=== PATIENT | male | born 1980 | race Caucasian/White ===

== ENCOUNTER 2016-07-14 10:20 | Inpatient (IN) | payer MEDICARE ==
[2016-07-14] MEDS ORDERED: Sodium Chloride 0.9% 1000 ML 1,000 ML IV STA ×2 (10:37→11:21)
[2016-07-14] MEDS ORDERED: Zofran 4 MG/2 ML VIAL IV ONE (10:42)
--- NOTE | 2016-07-14 10:42 | ERPHSYRPT ---
- History of Present Illness Time Seen by Provider: 07/14/16 10:39 Source: patient Exam Limitations: no limitations Patient Subjective Stated Complaint: PT REPORTS HIGH BLOOD SUGAR-STATES HE BEGAN VOMITING BHARGAVI 3 DAYS AGO-DENIES DIARRHEA-DENIES PAIN Triage Nursing Assessment: PT LETHARGIC BUT ALERT UPON ARRIVAL-UPPER EXTREMITIES DUSKY-CAP REFILL DELAYED-RESP NONLABORED Physician History: This 35-year-old white male with history of hyperglycemia, diabetes, failed pancreatic transplant. Brought by paramedics with complaint of vomiting increased blood sugar since today. Past medical history includes glaucoma, diabetes, congestive heart failure, GI bleed, depression, collapsed lung, GI bleed, failed pancreatic transplant, removal of 2 feet of his small bowel,. Past surgical history includes pancreatic surgery, hydrocele repair. Timing/Duration: today Severity: moderate Modifying Factors: Improves With: nothing Associated Symptoms: nausea, vomiting, malaise, weakness, No abdominal pain, No shortness of breath, No heartburn, No diaphoresis, No cough, No chills, No chest pain, No fever, No headaches, No loss of appetite, No rash, No syncope, No seizure Allergies/Adverse Reactions: lorazepam [From Ativan] Adverse Reaction (Verified 07/14/16 10:39) "makes him crazy" Home Medications: Esomeprazole Magnesium [Nexium] 40 mg PO DAILY 07/30/15 [History] Furosemide 40 mg [Lasix 40 MG] 40 mg PO DAILY 07/30/15 [History] Insulin Aspart [NovoLOG Insulin] 100 units SQ UD 07/30/15 [History] Insulin Glargine [Lantus Insulin] 15 units SQ DAILY 07/30/15 [History] Potassium Chloride 20 Meq [Klor-Con 20 MEQ] 20 meq PO DAILY 07/30/15 [History] Ropinirole HCl [Requip] 1 - 2 mg PO DAILY 07/30/15 [History] Aspirin 81 gm Chew [Baby Aspirin 81 mg Chew] 81 mg PO DAILY 07/14/16 [ History] Hydroxyzine HCl 25 mg [Atarax 25 mg] 25 mg PO UD 07/14/16 [History] Hx Tetanus, Diphtheria Vaccination/Date Given: No Hx Influenza Vaccination/Date Given: No Hx Pneumococcal Vaccination/Date Given: No Immunizations Up to Date: Yes - Review of Systems Constitutional: No Fever, No Chills Eyes: No Symptoms Ears, Nose, & Throat: No Symptoms Respiratory: No Cough, No Dyspnea Cardiac: No Chest Pain, No Edema, No Syncope Abdominal/Gastrointestinal: Nausea, Vomiting, No Abdominal Pain, No Diarrhea, No Constipation, No Hematemesis, No Hematochezia, No Melena, No Dysphagia Genitourinary Symptoms: No Dysuria Musculoskeletal: No Back Pain, No Neck Pain Skin: No Rash Neurological: No Dizziness, No Focal Weakness, No Sensory Changes Psychological: No Symptoms Endocrine: No Symptoms All Other Systems: Reviewed and Negative - Past Medical History Pertinent Past Medical History: Yes Neurological History: No Pertinent History ENT History: Glaucoma Cardiac History: Congestive Heart Failure Respiratory History: No Pertinent History Endocrine Medical History: Diabetes Type I, Other Musculoskeletal History: No Pertinent History GI Medical History: GI Bleed, Other History: No Pertinent History Psycho-Social History: Depression Male Reproductive Disorders: Other Other Medical History: hx of collasped lung,major GI bleed in 2003. removal of 4 feet of small intestin,failed pancreasatic transplant, Pt states - Past Surgical History Past Surgical History: Yes Neuro Surgical History: No Pertinent History Cardiac: No Pertinent History Respiratory: No Pertinent History Gastrointestinal: Pancreatic Surgery Genitourinary: No Pertinent History Musculoskeletal: No Pertinent History Male Surgical History: No Pertinent History, Other Other Surgical History: hydrocele repair - Social History Smoking Status: Never smoker Exposure to second hand smoke: No Drug Use: none Patient Lives Alone: No - Nursing Vital Signs Nursing Vital Signs: Initial Vital Signs Temperature 97.5 F Temperature Source Oral Pulse Rate 130 Respiratory Rate 20 Blood Pressure [Right Arm] 132/72 Pain Intensity 0 - Physical Exam General Appearance: other (well-developed white male pale and weak in appearance ) Eye Exam: PERRL/EOMI, eyes nml inspection Ears, Nose, Throat Exam: normal ENT inspection, TMs normal, pharynx normal, moist mucous membranes Neck Exam: normal inspection, non-tender, supple, full range of motion Respiratory Exam: normal breath sounds, lungs clear, No respiratory distress Cardiovascular Exam: tachycardia, other (heart tachycardic without murmur) Gastrointestinal/Abdomen Exam: soft, normal bowel sounds, No tenderness, No mass Back Exam: normal inspection, normal range of motion, No CVA tenderness, No vertebral tenderness Extremity Exam: normal inspection, normal range of motion, pelvis stable Neurologic Exam: alert, oriented x 3, cooperative, normal mood/affect, nml cerebellar function, nml station & gait, sensation nml, No motor deficits Skin Exam: normal color, warm, dry, No rash Lymphatic Exam: No adenopathy SpO2 Interpretation: normal (100%) SpO2: 100 Oxygen Delivery: Room Air - Course Nursing assessment & vital signs reviewed: Yes EKG Interpreted by Me: RATE (132 bpm), Sinus Tach, NORMAL AXIS, Other (EKG, sinus tachycardia 132 beats per minute normal axis no acute ST or T wave changes ) Ordered Tests: Active Orders 24 hr Category Date Time Status Accucheck STAT Care 07/14/16 10:37 Active EKG-ER Only STAT Care 07/14/16 10:37 Active IV Insertion STAT Care 07/14/16 10:37 Active Pulse Oximetry (ED) STAT Care 07/14/16 10:37 Active ABG [ARTERIAL BLOOD GASES] Urgent Lab 07/14/16 11:25 Completed AMYLASE Stat Lab 07/14/16 11:25 Completed CBC W DIFF Stat Lab 07/14/16 11:25 Completed CMP Stat Lab 07/14/16 11:25 Completed Ethyl Alcohol,Urine Stat Lab 07/14/16 10:37 Ordered Glucose,Critical Care Urgent Lab 07/14/16 11:25 Completed LIPASE Stat Lab 07/14/16 11:25 Completed Lactic Acid Urgent Lab 07/14/16 11:25 Completed Manual Differential NC Stat Lab 07/14/16 11:25 Completed UA Stat Lab 07/14/16 10:37 Ordered Urine Triage Profile Stat Lab 07/14/16 10:38 Ordered Medication Summary Generic Name Dose Route Start Last Admin Trade Name Freq PRN Reason Stop Dose Admin Insulin Human Regular 100 101 mls @ 5.05 mls/hr 07/14/16 12:30 units/ Sodium Chloride IV 08/13/16 12:29 .Q20H REGAN 5 UNITS/HR Discontinued Medications Generic Name Dose Route Start Last Admin Trade Name Freq PRN Reason Stop Dose Admin Sodium Chloride 1,000 mls @ 999 mls/hr 07/14/16 10:37 07/14/16 10:50 Sodium Chloride 0.9% 1000 Ml IV 07/14/16 11:37 999 mls/hr .Q1H1M STA Administration Sodium Chloride Confirm 07/14/16 10:51 Sodium Chloride 0.9% 1000 Ml Administered 07/14/16 10:52 Dose 1,000 mls @ ud .ROUTE .STK-MED ONE Sodium Chloride 1,000 mls @ 999 mls/hr 07/14/16 11:21 Sodium Chloride 0.9% 1000 Ml IV 07/14/16 12:21 .Q1H1M STA Ondansetron HCl 4 mg 07/14/16 10:42 07/14/16 10:50 Zofran 4 Mg/2 Ml Vial IV 07/14/16 10:43 4 mg STAT ONE Administration Ondansetron HCl Confirm 07/14/16 10:51 Zofran 4 Mg/2 Ml Vial Administered 07/14/16 10:52 Dose 4 mg .ROUTE .STK-MED ONE Lab/Rad Data: Laboratory Result Diagrams 07/14/16 11:25 07/14/16 11:25 Laboratory Results 07/14/16 07/14/16 07/14/16 Range/Units 11:25 11:25 11:25 WBC (4.0-10.5) K/mm3 RBC (4.1-5.6) M/mm3 Hgb (12.5-18.0) gm/dl Hct (42-50) % MCV (78-100) fl MCH (26-32) pg MCHC (32-36) g/dl RDW (11.5-14.0) % Plt Count (150-450) K/mm3 MPV (6-9.5) fl Segmented Neutrophils (36.-66.) % Band Neutrophils (0.0-2.0) % Lymphocytes (Manual) (24-44) % Monocytes (Manual) (0.0-12.0) % Basophils (Manual) (0.0-1.0) % Differential Comment Platelet Estimate (NORMAL) Puncture Site neck pCO2 17 L* (35-45) mmHg pO2 87 (75-100) mmHg Base Excess -22.6 L (-2.0-2.0) O2 Saturation 94.6 (94-100) g/dF ABG pH 7.09 L* (7.35-7.45) ABG HCO3 5.2 L* (22-28) ABG O2 Sat (Measured) 96.2 (95-100) % Power Test NOT APPLICABLE A-a Gradient 41 a/A Ratio 0.68 Hemoglobin 14.9 Carboxyhemoglobin 0.9 (0.0-6.9) % THgb Methemoglobin 0.8 L (1.4-1.5) % Potassium 5.6 H 4.8 (3.5-5.1) Glucose 662 H* 665 H* (70-110) Temperature 37.0 C POC O2 Flow Rate 21 % Sodium 125 L (136-145) mEq/L Chloride 89 L (98-107) mEq/L Carbon Dioxide < 5.0 L* (21-32) mEq/L Anion Gap Not Reportable BUN 20 (9-20) mg/dL Creatinine 1.42 H (0.55-1.30) mg/dl Estimated GFR > 60 ML/MIN Lactic Acid 1.9 (0.4-2.0) Calcium 9.5 (8.5-10.1) mg/dL Total Bilirubin 0.9 (0.2-1.0) mg/dL AST 72 H (15-37) U/L ALT 68 (12-78) U/L Alkaline Phosphatase 167 H (46-116) U/L Serum Total Protein 7.9 (6.4-8.2) gm/dL Albumin 3.7 (3.4-5.0) g/dL Amylase 34 (25-115) U/L Lipase 120 (73-393) U/L // Range/Units 11:25 WBC 13.5 H (4.0-10.5) K/mm3 RBC 5.17 (4.1-5.6) M/mm3 Hgb 14.2 (12.5-18.0) gm/dl Hct 43.3 (42-50) % MCV 83.8 (78-100) fl MCH 27.5 (26-32) pg MCHC 32.8 (32-36) g/dl RDW 14.5 H (11.5-14.0) % Plt Count 518 H (150-450) K/mm3 MPV 9.4 (6-9.5) fl Segmented Neutrophils 72 H (36.-66.) % Band Neutrophils 4 H (0.0-2.0) % Lymphocytes (Manual) 20 L (24-44) % Monocytes (Manual) 3 (0.0-12.0) % Basophils (Manual) 1 (0.0-1.0) % Differential Comment NORMAL Platelet Estimate INCREASED (NORMAL) Puncture Site pCO2 (35-45) mmHg pO2 (75-100) mmHg Base Excess (-2.0-2.0) O2 Saturation (94-100) g/dF ABG pH (7.35-7.45) ABG HCO3 (22-28) ABG O2 Sat (Measured) (95-100) % Power Test A-a Gradient a/A Ratio Hemoglobin Carboxyhemoglobin (0.0-6.9) % THgb Methemoglobin (1.4-1.5) % Potassium (3.5-5.1) Glucose (70-110) Temperature C POC O2 Flow Rate % Sodium (136-145) mEq/L Chloride (98-107) mEq/L Carbon Dioxide (21-32) mEq/L Anion Gap BUN (9-20) mg/dL Creatinine (0.55-1.30) mg/dl Estimated GFR ML/MIN Lactic Acid (0.4-2.0) Calcium (8.5-10.1) mg/dL Total Bilirubin (0.2-1.0) mg/dL AST (15-37) U/L ALT (12-78) U/L Alkaline Phosphatase (46-116) U/L Serum Total Protein (6.4-8.2) gm/dL Albumin (3.4-5.0) g/dL Amylase (25-115) U/L Lipase (73-393) U/L - Progress Progress: improved Progress Note: 07/14/16 11:21 patient refused interosseous lines nurses having difficulty obtaining IV peripheral line has sewing teacher placed right external jugular line. 07/14/16 12:24 Patient in diabetic ketoacidosis he is receiving IV normal saline initial 2 L to run in. Insulin drip has been ordered. Case is discussed with Dr. Christopher Mendez will place patient on ICU diabetic ketoacidosis protocol. - Departure Time of Disposition: 12:26 Departure Disposition: In-patient Admission Clinical Impression: Diabetic ketoacidosis Qualifiers: Diabetes mellitus type: type 1 Diabetes mellitus complication detail: without coma Qualified Code(s): E10.10 - Type 1 diabetes mellitus with ketoacidosis without coma Condition: Fair Critical Care Time: No
[2016-07-14] MEDS ORDERED: Sodium Chloride 0.9% 1000 ML 1,000 ML ONE ×2 (10:51→12:42)
[2016-07-14] MEDS ORDERED: Zofran 4 MG/2 ML VIAL ONE (10:51)
[2016-07-14 11:28] LABS: A-aADO2 41; ARTERIAL BLD GAS O2 SATURATION 96.2 % (95-100); ARTERIAL BLOOD GAS BASE EXCESS -22.6 (-2.0-2.0); ARTERIAL BLOOD GAS FIO2 21 %; ARTERIAL BLOOD GAS PO2 87 mmHg (75-100); ARTERIAL BLOOD GAS pH 7.09 (7.35-7.45); Lactic Acid 1.9 (0.4-2.0)
[2016-07-14 11:29] LABS: Glucose,Critical Care 662 (70-110); Mean Cell Volume 83.8 fl (78-100); Mean Corpuscular Hemoglobin 27.5 pg (26-32); Mean Platelet Volume 9.4 fl (6-9.5); Platelet Count 518 K/mm3 (150-450); Red Blood Count 5.17 M/mm3 (4.1-5.6); Red Cell Distribution Width 14.5 % (11.5-14.0); White Blood Count 13.5 K/mm3 (4.0-10.5)
[2016-07-14 11:52] LABS: LIPASE 120 U/L (73-393)
[2016-07-14 11:56] LABS: ALBUMIN 3.7 g/dL (3.4-5.0); ALKALINE PHOSPHATASE 167 U/L (46-116); BILIRUBIN,TOTAL 0.9 mg/dL (0.2-1.0); BLOOD UREA NITROGEN 20 mg/dL (9-20); CHLORIDE 89 mEq/L (98-107); Potassium 4.8 mEq/L (3.5-5.1); SGOT/AST 72 U/L (15-37); SGPT/ALT 68 U/L (12-78); SODIUM 125 mEq/L (136-145); Total Protein 7.9 gm/dL (6.4-8.2)
[2016-07-14 11:57] LABS: BAND 4 % (0.0-2.0); Basophil 1 % (0.0-1.0); Platelet Estimate INCREASED (NORMAL); Total Cells Counted 100
[2016-07-14 12:11] LABS: Glucose 665 MG/DL (70-110)
[2016-07-14 12:16] LABS: Carbon Dioxide < 5.0 mEq/L (21-32)
[2016-07-14] MEDS ORDERED: NOVOLIN R INSULIN (FOR DRIPS)** 100 UNITS in Sodium Chloride 0.9% 100 ML IVPB 100 ML IV SCH (12:30)
[2016-07-14 12:32] LABS: Collection Type VOID
[2016-07-14 12:33] LABS: COMPLETE URINE MICROSCOPIC? YES
[2016-07-14 12:54] LABS: Bacteria RARE /HPF (NEGATIVE)
[2016-07-14] MEDS ORDERED: Zofran 4 MG/2 ML VIAL IV PRN ×2 (13:27→15:35)
[2016-07-14] MEDS ORDERED: Sodium Chloride 0.9% 1000 ML 1,000 ML IV SCH (13:27)
[2016-07-14] MEDS ORDERED: NovoLOG Insulin SQ PRN (13:39)
[2016-07-14] MEDS ORDERED: Lantus Insulin SQ SCH (14:00)
[2016-07-14 14:10] LABS: INR 0.88 (0.8-3.0); PROTIME 9.9 SECONDS (8.83-12.87)
[2016-07-14 14:13] LABS: PTT 26.5 SECONDS (24.1-36.1)
[2016-07-14] MEDS ORDERED: HEPARIN-NS 1,000 UNITS/500 ML IV ONE (14:25)
[2016-07-14] MEDS: ECOTRIN 81 MG PO SCH (15:42)
[2016-07-14] MEDS: Protonix 40MG Tablet PO SCH (15:42)
--- NOTE | 2016-07-14 16:25 | XRAY ---
Indication: Elevated WBC. Comparison: February 06, 2014. Portable chest again demonstrates normal heart, lungs, and bony thorax with new right arm PICC line in good position.
--- NOTE | 2016-07-14 16:28 | XRAY ---
Indication: Long-term IV access and therapy for DKA. Poor venous access. Informed consent obtained. Patient was placed on the fluoroscopic table in a supine position. Initial sonographic imaging of the right upper extremity was performed for localization of patent veins. The right upper extremity was then prepped and draped in sterile fashion. Tourniquet applied. 1% lidocaine plain used for local anesthesia. Using ultrasound guidance and a micropuncture needle, a basilic vein above the elbow was successfully percutaneously cannulized. A floppy tip 0.018 guidewire inserted. Tourniquet released. Needle was exchanged for a 5 [place]une[place] dilator peel-away sheath catheter. Ultimately a 5 [place] double-lumen PICC line was inserted over a longer 0.018 guidewire with the tip positioned in the distal SVC using fluoroscopic guidance. Guidewire removed. Both ports flushed with heparinized saline. Catheter was secured. Postoperative instructions and orders given. Patient discharged in good condition. Impression: Technically successful right upper extremity PICC line placement using ultrasound and fluoroscopic guidance. No immediate complications. Approximately 1 cc blood loss. Approximately 0.4 minute of fluoroscopy used.
--- NOTE | 2016-07-14 16:28 | XRAY ---
Indication: Ultrasound guidance for PICC line placement. Initial sonographic imaging of the right upper extremity was performed for localization of patent veins. A patent basilic vein identified above the elbow. Ultrasound guidance was then used for PICC line insertion. Full PICC line insertion is reported separately.
--- NOTE | 2016-07-14 17:11 | PCM.HP ---
History of Present Illness - Chief Complaint Chief Complaint: DKA Date: 07/14/16 History of Present Illness: is a 35 year old male. who has a long complicated history and is noncompliant with his diabetes. He is following with Dr. Matt for this but has not been to an appointment for some time. He developed a rash a week or 2 ago and saw an FI[employer] H[employer] COACH and was given kenalog and celestone. He said his sugars at that time were running in the 120 to 140 range. He states he has been tired on the vistaril and sleeping a lot so he didn 't get up to take his insulin for the last few days. He then woke up to today with dry heaves and feeling very weak and came to the ED. He admits he "took a little meth but I wasn't binging on it or nothing a few days ago to try to wake up". He has had past history of amphetamine abuse. He denies iv drug use and states he smokes it. He denies diarrhea, chest pain or shortness of breath. he has heart palpitations and anxiety. - Review of Systems Constitutional: Fatigue, No Fever, No Chills Eyes: No Discharge, No Vision Changes, No Double Vision Ears, Nose, & Throat: No Nose Congestion, No Nose Discharge, No Sinus Drainage Respiratory: No Cough, No Orthopnea, No Short Of Breath Cardiac: Palpitations, No Chest Pain, No Edema Abdominal/Gastrointestinal: Abdominal Pain, Nausea, No Vomiting, No Diarrhea, No Constipation Genitourinary Symptoms: No Dysuria, No Frequency, No Hematuria Musculoskeletal: Arthralgias, No Deformity, No Joint Redness, No Joint Swelling Skin: Rash, Other (pruritic rash abdomen back and extremities it has improved since previous evaluation for this with no new lesions noted. ) Neurological: No Focal Weakness, No Headache, No Seizure Psychological: Drug Abuse, Anxiety, Depression Endocrine: Polyuria Hematologic/Lymphatic: Anemia Medications & Allergies Home Medications: Home Medication List Esomeprazole Magnesium [Nexium] 40 mg PO DAILY 07/30/15 [History Confirmed 07/14] Furosemide 40 mg [Lasix 40 MG] 40 mg PO DAILY 07/30/15 [History Confirmed 07/14/16] Insulin Aspart [NovoLOG Insulin] 100 units SQ UD 07/30/15 [History Confirmed 07/14/16] Insulin Glargine [Lantus Insulin] 15 units SQ DAILY 07/30/15 [History Confirmed 07/14/16] Potassium Chloride 20 Meq [Klor-Con 20 MEQ] 20 meq PO DAILY 07/30/15 [History Confirmed 07/14/16] Ropinirole HCl [Requip] 1 - 2 mg PO DAILY 07/30/15 [History Confirmed 07/14/16] Aspirin 81 gm Chew [Baby Aspirin 81 mg Chew] 81 mg PO DAILY 07/14/16 [ History Confirmed 07/14/16] Hydroxyzine HCl 25 mg [Atarax 25 mg] 25 mg PO UD 07/14/16 [History Confirmed 07/14/16] Allergies/Adverse Reactions: Allergies Allergy/AdvReac Type Severity Reaction Status Date / Time lorazepam [From Ativan] AdvReac Verified 07/14/16 10:39 - Past Medical History Past Medical History: Yes Neurological History: No Pertinent History ENT History: Glaucoma Cardiac History: Congestive Heart Failure Respiratory History: No Pertinent History Endocrine Medical History: Diabetes Type I, Other Musculoskelatal History: No Pertinent History GI Medical History: GI Bleed, Other History: No Pertinent History Pyscho-Social History: Depression Male Reproductive Disorders: Other Comment: hx of collasped lung,major GI bleed in 2003. removal of 4 feet of small intestin,failed pancreasatic transplant, Pt states - Past Surgical History Past Surgical History: Yes Neuro Surgical History: No Pertinent History Cardiac History: No Pertinent History Respiratory Surgery: No Pertinent History GI Surgical History: Pancreatic Surgery Genitourinary Surgical Hx: No Pertinent History Musculskeletal Surgical Hx: No Pertinent History Male Surgical History: No Pertinent History, Other Other Surgical History: hydrocele repair - Social History Smoking Status: Never smoker Exposure to second hand smoke: No Alcohol: None Drug Use: methamphetamines - Physical Exam Vital Signs: Vital Signs - 24 hr Temp Pulse Resp BP Pulse Ox 07/14/16 14:00 96.8 F 130 H 25 H 152/94 96 07/14/16 13:15 96.8 F 132 H 28 H 152/94 100 07/14/16 12:52 97.4 F 136 H 22 133/69 98 07/14/16 12:48 97.4 F 132 H 20 132/69 100 07/14/16 12:27 100 07/14/16 11:51 130 H 20 132/72 100 07/14/16 11:12 98 07/14/16 10:24 97.5 F 128 H 24 150/92 100 General Appearance: mild distress, thin Neurologic Exam: alert, oriented x 3, cooperative Eye Exam: No scleral icterus, No pale conjunctivae Ears, Nose, Throat Exam: dry mucous membranes Neck Exam: normal inspection, non-tender, supple Respiratory Exam: normal breath sounds, lungs clear Cardiovascular Exam: tachycardia, No edema Gastrointestinal/Abdomen Exam: soft, normal bowel sounds, No tenderness, No distention, No mass Extremity Exam: normal inspection, No calf tenderness, No pedal edema, No swelling Skin Exam: warm, dry, rash, other (he has erythematous patches most prounounced righ back onto right abdomen but also on left abdomen and bilateral forearms that seems improved from previous office exam) Results - Labs Lab/Micro Results: Accuchecks Date 07/14/16 Time 13:30 Accucheck Value: 538 Accuchecks Date 07/14/16 Time 13:30 Accucheck Value: 538 - Radiology Impressions Radiology Exams & Impressions: Radiology Procedures Category Date Time Status CHEST 1 VIEW (PORTABLE) Routine Exams 07/14/16 Completed GUIDE FOR VASCULAR ACCESS [US] Routine Exams 07/14/16 Completed PICC LINE PLACEMENT Routine Exams 07/14/16 13:42 Completed Assessment/Plan (1) Diabetic ketoacidosis Current Visit: Yes Status: Acute Qualifiers: Diabetes mellitus type: type 1 Diabetes mellitus complication detail: without coma Qualified Code(s): E10.10 - Type 1 diabetes mellitus with ketoacidosis without coma Assessment & Plan: secondary to noncompliance and drug abuse currently on q1h blood glucose q4h K and abg monitor gap received 2L NS bolus and running 250 mL/h now glucose improved to 300's continue protocol as ordered for insulin gtt/ fluids / and K see paper chart order until gap closed then transition to subcutaneous insulin continue ppi GI ppx check mag and phos lab pending at this time replace prn Code(s): E13.10 - OTH DIABETES MELLITUS WITH KETOACIDOSIS WITHOUT COMA (2) Non compliance w medication regimen Current Visit: Yes Status: Acute Code(s): Z91.14 - PATIENT'S OTHER NONCOMPLIANCE WITH MEDICATION REGIMEN (3) History of peptic ulcer disease Current Visit: Yes Status: Acute Code(s): Z87.11 - PERSONAL HISTORY OF PEPTIC ULCER DISEASE (4) Methamphetamine abuse Current Visit: Yes Status: Acute Code(s): F15.10 - OTHER STIMULANT ABUSE, UNCOMPLICATED
[2016-07-14 17:31] LABS: VBG BASE EXCESS -15.7 (-2.0-2.0); VBG CARBOXYHEMOGLOBIN 1.2 % T HGB (0.0-6.9); VBG HCO3- 9.4 meq/L (22-28); VBG HEMOGLOBIN 12.1; VBG O2 SATURATION 90.4 (95-100); VBG POTASSIUM 4.1 (3.5-5.1); VBG pH 7.26 (7.32-7.42)
[2016-07-14] MEDS ORDERED: D5W/0.45NS W/ 20mEq KCl 1000 ML 1,000 ML IV PRN (18:00)
[2016-07-14 18:05] LABS: ANION GAP 30.7 MEQ/L (5-15); BLOOD UREA NITROGEN 16 mg/dL (9-20); CHLORIDE 111 mEq/L (98-107); Glucose 143 MG/DL (70-110); MAGNESIUM 1.9 mg/dL (1.8-2.4); Potassium 4.2 mEq/L (3.5-5.1); SODIUM 147 mEq/L (136-145)
[2016-07-14 18:17] LABS: Carbon Dioxide 9.9 mEq/L (21-32)
[2016-07-14 20:33] LABS: ANION GAP 29.2 MEQ/L (5-15); BLOOD UREA NITROGEN 14 mg/dL (9-20); CHLORIDE 108 mEq/L (98-107); Glucose 264 MG/DL (70-110); Potassium 4.4 mEq/L (3.5-5.1); SODIUM 144 mEq/L (136-145)
[2016-07-14 20:39] LABS: Carbon Dioxide 9.3 mEq/L (21-32)
[2016-07-14 21:38] LABS: VBG BASE EXCESS -13.9 (-2.0-2.0); VBG CARBOXYHEMOGLOBIN 1.3 % T HGB (0.0-6.9); VBG HCO3- 11.7 meq/L (22-28); VBG HEMOGLOBIN 10.7; VBG O2 SATURATION 85.8 (95-100); VBG pH 7.26 (7.32-7.42)
[2016-07-14] MEDS ORDERED: Dextrose 5% -0.45 NaCl 1000 ML 1,000 ML IV ONE (21:49)
[2016-07-14] MEDS ORDERED: Dextrose 5%-1/2NS IV Soln. 500 ML 500 ML IV SCH (22:00)
[2016-07-14] MEDS ORDERED: NON-FORMULARY ITEM (Ropinirole Hcl [Requip] 1 MG) PO SCH (22:00)
[2016-07-14] MEDS: [UNRECOGNIZED DRUG - OTHER] IV SCH (22:07)
[2016-07-14] MEDS: DEXTROSE 5% IV SCH (22:07)
[2016-07-14] MEDS: Requip 0.5 MG PO SCH (23:20)
[2016-07-15 00:37] LABS: VBG BASE EXCESS -8.5 (-2.0-2.0); VBG CARBOXYHEMOGLOBIN 2.7 % T HGB (0.0-6.9); VBG HCO3- 16.2 meq/L (22-28); VBG HEMOGLOBIN 10.8; VBG O2 SATURATION 91.5 (95-100); VBG POTASSIUM 3.7 (3.5-5.1); VBG pH 7.34 (7.32-7.42)
[2016-07-15 00:50] LABS: ANION GAP 20.5 MEQ/L (5-15); BLOOD UREA NITROGEN 11 mg/dL (9-20); CHLORIDE 108 mEq/L (98-107); Carbon Dioxide 17.5 mEq/L (21-32); Glucose 262 MG/DL (70-110); Potassium 3.8 mEq/L (3.5-5.1); SODIUM 142 mEq/L (136-145)
[2016-07-15] MEDS ORDERED: TYLENOL 325 MG PO PRN (01:11)
[2016-07-15] MEDS ORDERED: Dextrose 5% -0.45 NaCl 1000 ML 1,000 ML IV ONE (03:39)
[2016-07-15] MEDS: DEXTROSE 5% IV SCH (04:29)
[2016-07-15] MEDS: [UNRECOGNIZED DRUG - OTHER] IV SCH (04:29)
[2016-07-15 05:24] LABS: VBG BASE EXCESS -4.9 (-2.0-2.0); VBG CARBOXYHEMOGLOBIN 1.1 % T HGB (0.0-6.9); VBG HCO3- 21.1 meq/L (22-28); VBG HEMOGLOBIN 10.9; VBG O2 SATURATION 83.9 (95-100); VBG POTASSIUM 3.3 (3.5-5.1); VBG pH 7.31 (7.32-7.42)
[2016-07-15 05:41] LABS: Mean Cell Volume 80.9 fl (78-100); Mean Corpuscular Hemoglobin 27.2 pg (26-32); Mean Platelet Volume 8.9 fl (6-9.5); Platelet Count 338 K/mm3 (150-450); Red Blood Count 3.82 M/mm3 (4.1-5.6); Red Cell Distribution Width 14.3 % (11.5-14.0); White Blood Count 9.7 K/mm3 (4.0-10.5)
[2016-07-15 06:26] LABS: ANION GAP 15.8 MEQ/L (5-15); BLOOD UREA NITROGEN 10 mg/dL (9-20); CHLORIDE 108 mEq/L (98-107); Carbon Dioxide 20.6 mEq/L (21-32); Glucose 274 MG/DL (70-110); Potassium 3.3 mEq/L (3.5-5.1); SODIUM 141 mEq/L (136-145)
[2016-07-15] MEDS ORDERED: NOVOLIN R INSULIN (FOR DRIPS)** 100 UNITS in Sodium Chloride 0.9% 100 ML IVPB 100 ML IV PRN ×2 (07:14→07:28)
[2016-07-15] MEDS ORDERED: K-LYTE 25 MEQ PO ONE (07:30)
--- NOTE | 2016-07-15 07:53 | PCM.NOTE ---
Date and Time: 07/15/16745 Subjective Assessment: he is more alert and talking easily now. He still has sore throat and feels aching all over but no specific complaints. He has urinated well this morning. He has no nausea or shortness of breath. Objective Exam General Appearance: no apparent distress, thin Neurologic Exam: alert, oriented x 3 Skin Exam: warm, dry, rash (erythematous patch on right low back / flank abdomen as well as some minimal red papules and patches on left abdomen with red papules on extensor forarms bilatera.) Eye Exam: pale conjunctivae, No scleral icterus Ears, Nose, Throat Exam: moist mucous membranes Neck Exam: non-tender, supple Respiratory Exam: normal breath sounds, lungs clear Cardiovascular Exam: tachycardia Gastrointestinal/Abdomen Exam: soft, normal bowel sounds, No tenderness, No distention Extremity Exam: normal inspection, No calf tenderness, No eden's sign, No pedal edema OBJECTIVE DATA Vital Signs: Vital Signs - 24 hr Temp Pulse Resp BP Pulse Ox 07/15/16 06:00 108 H 19 118/61 98 07/15/16 04:00 98.4 F 108 H 19 118/61 98 07/15/16 02:00 108 H 07/15/16 00:01 117 H 07/15/16 00:00 117 H 16 117/68 98 07/14/16 20:00 127 H 15 117/68 99 07/14/16 18:00 124 H 16 129/78 97 07/14/16 16:00 99.1 F 121 H 23 149/99 97 07/14/16 14:00 96.8 F 133 H 25 H 140/84 97 07/14/16 13:15 96.8 F 132 H 28 H 152/94 100 07/14/16 12:52 97.4 F 136 H 22 133/69 98 07/14/16 12:48 97.4 F 132 H 20 132/69 100 07/14/16 12:27 100 07/14/16 11:51 130 H 20 132/72 100 07/14/16 11:12 98 07/14/16 10:24 97.5 F 128 H 24 150/92 100 Pain Assessment - Last Documented Pain Intensity 5 Pain Scale Used 0-10 Pain Scale Intake and Output: Intake & Output 07/12/16 07/13/16 07/14/16 07/15/16 11:59 11:59 11:59 11:59 Intake Total 6038 Output Total 600 Balance 5438 Weight 46.9 kg Lab Results: Accuchecks Date 07/14/1607/14/1607/14/1607/14/1607/14/1607/14/1607/14/1607/14/1607/14/16 Time 21:30 Time 19:30 Time 16:00 Time 18:30 Time 17:30 Time 15:30 Time 14:30 Time 13:30 Accucheck Value: 180 Accucheck Value: 219 Accucheck Value: 274 Accucheck Value: 195 Accucheck Value: 223 Accucheck Value: 251 Accucheck Value: 246 Accucheck Value: 175 Accucheck Value: 175 Accucheck Value: 244 Accucheck Value: 220 Accucheck Value: 131 Accucheck Value: 150 Accucheck Value: 378 Accucheck Value: 414 Accucheck Value: 538 Lab Results-Last 24 Hours 07/14/16 07/14/16 07/14/16 Range/Units 17:12 17:25 20:10 WBC (4.0-10.5) K/mm3 RBC (4.1-5.6) M/mm3 Hgb (12.5-18.0) gm/dl Hct (42-50) % MCV (78-100) fl MCH (26-32) pg MCHC (32-36) g/dl RDW (11.5-14.0) % Plt Count (150-450) K/mm3 MPV (6-9.5) fl VBG pH 7.26 L (7.32-7.42) VBG pCO2 at Pat Temp 21 L* (42-55) mm/Hg VBG pO2 at Pat Temp 51 H (25-40) mm/Hg VBG HCO3 9.4 L* (22-28) meq/L VBG O2 Sat (Ramos) 90.4 L (95-100) VBG Base Excess -15.7 L (-2.0-2.0) VBG Hemoglobin 12.1 VBG Carboxyhemoglobin 1.2 (0.0-6.9) % T HGB POC Potassium 4.1 (3.5-5.1) Sodium 147 H 144 (136-145) mEq/L Potassium 4.2 4.4 (3.5-5.1) mEq/L Chloride 111 H 108 H (98-107) mEq/L Carbon Dioxide 9.9 L* 9.3 L* (21-32) mEq/L Anion Gap 30.7 H 29.2 H (5-15) MEQ/L BUN 16 14 (9-20) mg/dL Creatinine 1.18 1.17 (0.55-1.30) mg/dl Estimated GFR > 60 > 60 ML/MIN Glucose 143 H 264 H (70-110) MG/DL Calcium 7.9 L 7.7 L (8.5-10.1) mg/dL Phosphorus 2.0 L (2.6-4.7) mg/dL Magnesium 1.9 (1.8-2.4) mg/dL 07/14/16 07/15/16 07/15/16 Range/Units 21:34 00:30 00:32 WBC (4.0-10.5) K/mm3 RBC (4.1-5.6) M/mm3 Hgb (12.5-18.0) gm/dl Hct (42-50) % MCV (78-100) fl MCH (26-32) pg MCHC (32-36) g/dl RDW (11.5-14.0) % Plt Count (150-450) K/mm3 MPV (6-9.5) fl VBG pH 7.26 L 7.34 (7.32-7.42) VBG pCO2 at Pat Temp 26 L 30 L (42-55) mm/Hg VBG pO2 at Pat Temp 45 H 52 H (25-40) mm/Hg VBG HCO3 11.7 L* 16.2 L* (22-28) meq/L VBG O2 Sat (Ramos) 85.8 L 91.5 L (95-100) VBG Base Excess -13.9 L -8.5 L (-2.0-2.0) VBG Hemoglobin 10.7 10.8 VBG Carboxyhemoglobin 1.3 2.7 (0.0-6.9) % T HGB POC Potassium 6.0 H* 3.7 (3.5-5.1) Sodium 142 (136-145) mEq/L Potassium 3.8 (3.5-5.1) mEq/L Chloride 108 H (98-107) mEq/L Carbon Dioxide 17.5 L (21-32) mEq/L Anion Gap 20.5 H (5-15) MEQ/L BUN 11 (9-20) mg/dL Creatinine 1.23 (0.55-1.30) mg/dl Estimated GFR > 60 ML/MIN Glucose 262 H (70-110) MG/DL Calcium 7.7 L (8.5-10.1) mg/dL Phosphorus (2.6-4.7) mg/dL Magnesium (1.8-2.4) mg/dL 07/15/16 07/15/16 07/15/16 Range/Units 05:19 05:20 05:20 WBC 9.7 (4.0-10.5) K/mm3 RBC 3.82 L (4.1-5.6) M/mm3 Hgb 10.4 L (12.5-18.0) gm/dl Hct 30.9 L (42-50) % MCV 80.9 (78-100) fl MCH 27.2 (26-32) pg MCHC 33.7 (32-36) g/dl RDW 14.3 H (11.5-14.0) % Plt Count 338 (150-450) K/mm3 MPV 8.9 (6-9.5) fl VBG pH 7.31 L (7.32-7.42) VBG pCO2 at Pat Temp 42 (42-55) mm/Hg VBG pO2 at Pat Temp 47 H (25-40) mm/Hg VBG HCO3 21.1 L (22-28) meq/L VBG O2 Sat (Ramos) 83.9 L (95-100) VBG Base Excess -4.9 L (-2.0-2.0) VBG Hemoglobin 10.9 VBG Carboxyhemoglobin 1.1 (0.0-6.9) % T HGB POC Potassium 3.3 L (3.5-5.1) Sodium 141 (136-145) mEq/L Potassium 3.3 L (3.5-5.1) mEq/L Chloride 108 H (98-107) mEq/L Carbon Dioxide 20.6 L (21-32) mEq/L Anion Gap 15.8 H (5-15) MEQ/L BUN 10 (9-20) mg/dL Creatinine 1.12 (0.55-1.30) mg/dl Estimated GFR > 60 ML/MIN Glucose 274 H (70-110) MG/DL Calcium 7.8 L (8.5-10.1) mg/dL Phosphorus (2.6-4.7) mg/dL Magnesium (1.8-2.4) mg/dL Radiology Exams: Radiology Procedures Category Date Time Status CHEST 1 VIEW (PORTABLE) Routine Exams 07/14/16 Completed GUIDE FOR VASCULAR ACCESS [US] Routine Exams 07/14/16 Completed PICC LINE PLACEMENT Routine Exams 07/14/16 13:42 Completed Assessment/Plan (1) Diabetic ketoacidosis Current Visit: Yes Status: Acute Qualifiers: Diabetes mellitus type: type 1 Diabetes mellitus complication detail: without coma Qualified Code(s): E10.10 - Type 1 diabetes mellitus with ketoacidosis without coma Assessment & Plan: gap closing acidosis resolving sugar improving will eat breakfast start 20 Units lantus turn insulin gtt and d5 of 2 hours after then start 5 Units + SSI moderate coverage with meals. repeat bmp this afternoon for K and labs in am Code(s): E13.10 - OTH DIABETES MELLITUS WITH KETOACIDOSIS WITHOUT COMA (2) Non compliance w medication regimen Current Visit: Yes Status: Acute Code(s): Z91.14 - PATIENT'S OTHER NONCOMPLIANCE WITH MEDICATION REGIMEN (3) History of peptic ulcer disease Current Visit: Yes Status: Acute Code(s): Z87.11 - PERSONAL HISTORY OF PEPTIC ULCER DISEASE (4) Methamphetamine abuse Current Visit: Yes Status: Acute Assessment & Plan: he has chronic tachycardia unclear if current tachycardia is due to the amphetamines his chronic baseine in the 100 to 120 range or his dka. given his history of fluid overload his regular use of lasix and current good renal function will stop the fluids in 2 hours and encourage po intake and monitor response. Code(s): F15.10 - OTHER STIMULANT ABUSE, UNCOMPLICATED
[2016-07-15] MEDS: ECOTRIN 81 MG PO SCH (08:32)
[2016-07-15] MEDS: Protonix 40MG Tablet PO SCH (08:32)
[2016-07-15] MEDS: POTASSIUM CHLORIDE 20 mEq IN WATER 100ML 100 ML IV SCH ×2 (08:42→10:44)
[2016-07-15] MEDS ORDERED: Dextrose 5% -0.45 NaCl 1000 ML 1,000 ML IV SCH (08:45)
[2016-07-15] MEDS ORDERED: BABY ASPIRIN 81 MG CHEW PO SCH (10:00)
[2016-07-15] MEDS ORDERED: NON-FORMULARY ITEM (Esomeprazole Magnesium [Nexium] 40 MG) PO SCH (10:00)
[2016-07-15] MEDS: NovoLOG Insulin SQ SCH ×2 (11:18→17:04)
[2016-07-15 14:27] LABS: ANION GAP 17.7 MEQ/L (5-15); BLOOD UREA NITROGEN 9 mg/dL (9-20); CHLORIDE 107 mEq/L (98-107); Carbon Dioxide 21.2 mEq/L (21-32); Glucose 281 MG/DL (70-110); Potassium 3.5 mEq/L (3.5-5.1); SODIUM 142 mEq/L (136-145)
[2016-07-15] MEDS ORDERED: Ativan 2 MG/1 ML VIAL IV PRN (16:04)
[2016-07-15] MEDS: BENADRYL 25 MG CAPSULE PO PRN ×2 (17:06→23:39)
[2016-07-15] MEDS: Requip 0.5 MG PO SCH (23:06)
[2016-07-16 05:34] LABS: Mean Cell Volume 81.6 fl (78-100); Mean Platelet Volume 8.6 fl (6-9.5); Platelet Count 263 K/mm3 (150-450); Red Blood Count 3.91 M/mm3 (4.1-5.6); Red Cell Distribution Width 14.4 % (11.5-14.0); White Blood Count 6.9 K/mm3 (4.0-10.5)
[2016-07-16 05:42] LABS: Mean Corpuscular Hemoglobin 27.8 pg (26-32)
[2016-07-16 06:04] LABS: ALBUMIN 2.4 g/dL (3.4-5.0); ALKALINE PHOSPHATASE 129 U/L (46-116); ANION GAP 10.8 MEQ/L (5-15); BILIRUBIN,TOTAL 0.4 mg/dL (0.2-1.0); BLOOD UREA NITROGEN 8 mg/dL (9-20); CHLORIDE 107 mEq/L (98-107); Carbon Dioxide 28.2 mEq/L (21-32); Glucose 178 MG/DL (70-110); MAGNESIUM 1.7 mg/dL (1.8-2.4); Potassium 3.5 mEq/L (3.5-5.1); SGOT/AST 68 U/L (15-37); SGPT/ALT 44 U/L (12-78); SODIUM 143 mEq/L (136-145); Total Protein 5.6 gm/dL (6.4-8.2)
--- NOTE | 2016-07-16 06:54 | PCM.DCORD ---
- Discharge Discharge Date: 07/16/16 Disposition: Home, Self-Care Condition: Good Prescriptions: New Insulin Glargine [Lantus Insulin] 20 unit SQ DAILY #0 unit Insulin Aspart [NovoLOG Insulin] 5 unit SQ AC #0 unit Triamcinolone 0.1% Cream [Kenalog 0.1% Cream 15 gm] 1 applic TP TID PRN #60 g PRN Reason: Itching Continue Ropinirole HCl [Requip] 1 - 2 mg PO DAILY Potassium Chloride 20 Meq [Klor-Con 20 MEQ] 20 meq PO DAILY Furosemide 40 mg [Lasix 40 MG] 40 mg PO DAILY Esomeprazole Magnesium [Nexium] 40 mg PO DAILY Hydroxyzine HCl 25 mg [Atarax 25 mg] 25 mg PO UD Aspirin 81 gm Chew [Baby Aspirin 81 mg Chew] 81 mg PO DAILY Discontinued Insulin Glargine [Lantus Insulin] 15 units SQ DAILY Insulin Aspart [NovoLOG Insulin] 100 units SQ UD Follow up with: CANDICE BUCKLEY [Primary Care Provider] - 1 Week
--- NOTE | 2016-07-16 07:26 | PCM.DS ---
Discharge Summary Date of Admission: 07/14/16 13:10 Date of Discharge: 07/16/16 Admitting Physician: CANDICE BUCKLEY Primary Care Provider: CANDICE BUCKLEY Allergies Allergies lorazepam [From Ativan] Adverse Reaction (Verified 07/14/16 10:39) "makes him crazy" Hospital Summary - Hospital Course Hospital Course: Jorge has uncontrolled type 1 diabetes and has history of noncompliance with medical therapy as well as a history of amphetamine abuse. He developed contact dermatitis about 10 days prior to presentation. He was given steroids IM by the [employer] [employer] he states it didn't change his sugars and when he was asked said it was running in the low 100's however his A1c was 11.0 so this seems unlikely. He was taking atarax for the itching and sleeping a great deal and did not take his insulin for 3 days then started having dry heaves and very weak and came to the ED. Was found to have DKA. He was treated with fluid boluses and then started on insulin gtt that was titrated until the gap closed and this was transitioned to subcutaneous lantus and novolog ac. We did 20 units of lantus and 5 units of novolog prior to meals to try to simplify the regimen for him and this seems to have controlled sugar better. He was unable to explain how he was using the novolog when he presented but states he does take it and does have lantus and novolog as well as testing supplies at home. We discussed the harms of chronic uncontrolled blood sugar and the need for vigilant control and he expressed understanding. He states he smoked just a little meth to try to wake him up a few days before he came to the hospital but states he has not been using regularly. We discussed the severe harms of amphetamines especially given his co morbidities and he expressed understanding. - Vitals & Intake/Output Vital Signs: Vital Signs Temperature 98.3 F 07/16/16 04:00 Pulse Rate 93 H 07/16/16 04:00 Respiratory Rate 16 07/16/16 06:00 Blood Pressure 130/85 07/16/16 04:00 O2 Sat by Pulse Oximetry 96 07/16/16 04:00 Intake & Output: Intake & Output 07/13/16 07/14/16 07/15/16 07/16/16 11:59 11:59 11:59 11:59 Intake Total 6038 1430 Output Total 600 1900 Balance 5438 -470 Weight 46.9 kg - Lab Result Diagrams: 07/16/16 05:18 07/16/16 05:18 Lab Results-Last 24 Hrs: Accuchecks Date 07/15/16 Date 07/15/16 Date 07/15/16 Time 22:00 Time 16:30 Time 11:16 Accucheck Value: 144 Accucheck Value: 128 Accucheck Value: 219 Lab Results-Last 24 Hours 07/15/16 07/16/16 07/16/16 Range/Units 13:46 05:18 05:18 WBC 6.9 (4.0-10.5) K/mm3 RBC 3.91 L (4.1-5.6) M/mm3 Hgb 10.9 L (12.5-18.0) gm/dl Hct 31.9 L (42-50) % MCV 81.6 (78-100) fl MCH 27.8 (26-32) pg MCHC 34.2 (32-36) g/dl RDW 14.4 H (11.5-14.0) % Plt Count 263 (150-450) K/mm3 MPV 8.6 (6-9.5) fl Sodium 142 (136-145) mEq/L Potassium 3.5 (3.5-5.1) mEq/L Chloride 107 (98-107) mEq/L Carbon Dioxide 21.2 (21-32) mEq/L Anion Gap 17.7 H (5-15) MEQ/L BUN 9 (9-20) mg/dL Creatinine 1.01 (0.55-1.30) mg/dl Estimated GFR > 60 ML/MIN Glucose 281 H (70-110) MG/DL Hemoglobin A1c 12.0 H (4.5-6.2) Calcium 8.1 L (8.5-10.1) mg/dL Magnesium (1.8-2.4) mg/dL Total Bilirubin (0.2-1.0) mg/dL AST (15-37) U/L ALT (12-78) U/L Alkaline Phosphatase (46-116) U/L Serum Total Protein (6.4-8.2) gm/dL Albumin (3.4-5.0) g/dL 07/16/16 Range/Units 05:18 WBC (4.0-10.5) K/mm3 RBC (4.1-5.6) M/mm3 Hgb (12.5-18.0) gm/dl Hct (42-50) % MCV (78-100) fl MCH (26-32) pg MCHC (32-36) g/dl RDW (11.5-14.0) % Plt Count (150-450) K/mm3 MPV (6-9.5) fl Sodium 143 (136-145) mEq/L Potassium 3.5 (3.5-5.1) mEq/L Chloride 107 (98-107) mEq/L Carbon Dioxide 28.2 (21-32) mEq/L Anion Gap 10.8 (5-15) MEQ/L BUN 8 L (9-20) mg/dL Creatinine 0.69 (0.55-1.30) mg/dl Estimated GFR > 60 ML/MIN Glucose 178 H (70-110) MG/DL Hemoglobin A1c (4.5-6.2) Calcium 8.3 L (8.5-10.1) mg/dL Magnesium 1.7 L (1.8-2.4) mg/dL Total Bilirubin 0.4 (0.2-1.0) mg/dL AST 68 H (15-37) U/L ALT 44 (12-78) U/L Alkaline Phosphatase 129 H (46-116) U/L Serum Total Protein 5.6 L (6.4-8.2) gm/dL Albumin 2.4 L (3.4-5.0) g/dL Micro Results-Entire Visit: Accuchecks Date 07/15/16 Date 07/15/16 Date 07/15/16 Time 22:00 Time 16:30 Time 11:16 Accucheck Value: 144 Accucheck Value: 128 Accucheck Value: 219 - Radiology Exams Ordered Rad Exams-Entire Visit: Radiology Procedures Category Date Time Status PICC LINE PLACEMENT Routine Exams 07/14/16 13:42 Completed Discharge Exam General Appearance: no apparent distress Neurologic Exam: alert, oriented x 3, cooperative Skin Exam: warm, dry, rash (papular patches on abdomen/flank/back upper and lower distal extremities.), other Eye Exam: No scleral icterus, No pale conjunctivae Neck Exam: normal inspection, non-tender, supple Respiratory Exam: normal breath sounds, lungs clear Cardiovascular Exam: tachycardia, No murmur Gastrointestinal/Abdomen Exam: soft, normal bowel sounds, No tenderness Extremity Exam: No calf tenderness, No pedal edema Final Diagnosis/Problem List - Final Discharge Diagnosis/Problem (1) Diabetic ketoacidosis Current Visit: Yes Status: Resolved (2) Non compliance w medication regimen Current Visit: Yes Status: Acute (3) History of peptic ulcer disease Current Visit: Yes Status: Acute (4) Methamphetamine abuse Current Visit: Yes Status: Acute (5) Uncontrolled type 1 diabetes mellitus Current Visit: Yes Status: Acute - Discharge Disposition: Home, Self-Care Condition: Good Prescriptions: New Insulin Glargine [Lantus Insulin] 20 unit SQ DAILY #0 unit Insulin Aspart [NovoLOG Insulin] 5 unit SQ AC #0 unit Triamcinolone 0.1% Cream [Kenalog 0.1% Cream 15 gm] 1 applic TP TID PRN #60 g PRN Reason: Itching Continue Ropinirole HCl [Requip] 1 - 2 mg PO DAILY Potassium Chloride 20 Meq [Klor-Con 20 MEQ] 20 meq PO DAILY Furosemide 40 mg [Lasix 40 MG] 40 mg PO DAILY Esomeprazole Magnesium [Nexium] 40 mg PO DAILY Hydroxyzine HCl 25 mg [Atarax 25 mg] 25 mg PO UD Aspirin 81 gm Chew [Baby Aspirin 81 mg Chew] 81 mg PO DAILY Discontinued Insulin Glargine [Lantus Insulin] 15 units SQ DAILY Insulin Aspart [NovoLOG Insulin] 100 units SQ UD Follow up with: CANDICE BUCKLEY [Primary Care Provider] - 1 Week
[2016-07-16] MEDS: BENADRYL 25 MG CAPSULE PO PRN (07:35)
[2016-07-16] MEDS: NovoLOG Insulin SQ SCH (07:38)
[2016-07-16 08:28] VITALS: BP 127/86; PULSE 95; O2SAT 97
== END 2016-07-16 10:00 | disposition home or self-care (01) | DRG 639 ==
LOC: ED 10:20 → ICU 13:10
PROVIDERS: ADMIT Family Medicine; ATTEND Family Medicine
DX: E10.10 Type 1 diabetes mellitus with ketoacidosis without coma (principal); Z79.4 Long term (current) use of insulin; Z91.14 Patient's other noncompliance with medication regimen; Z87.11 Personal history of peptic ulcer disease; F15.10 Other stimulant abuse, uncomplicated; F41.8 Other specified anxiety disorders
CPT/HCPCS: 36000; 36415; 36569; 36600; 71010; 76937; 77001; 80048; 80053; 80307; 80320; 81000; 82150; 82375; 82803; 82805; 82947; 82962; 83036; 83605; 83690; 83735; 83986; 84100; 85025; 85027; 85610; 85730; 93005; 96360; 96361; 96374; 99285; C1769; J1642; J1815; J2405; J3480; A9270-GY

== ENCOUNTER 2023-05-17 05:00 | Observation (INO) | payer MEDICARE ==
--- NOTE | 2023-05-17 06:02 | ERPHSYRPT ---
- History of Present Illness Historian: patient, EMS Exam Limitations: clinical condition Patient Subjective Stated Complaint: pt states that 2 days ago his insulin pump ran out of insulin and his CGM's battery . has been checking BS approx every 2 hours and treating BS with SQ novolog. last dose was 10units sq novolog at approx 0100. pt is not on any long acting insulin. he reports that about the same time 2days ago he started experiencing nausea and vomiting and reports that he has vomited approx 5 times in last 12hrs and it is "bile looking". LBM was 05/16/23 and reports it was "normal" for him and that he generally has a BM daily. pt states that there has been no blood in vomit or stool. Triage Nursing Assessment: pt brought into room 5 via EMS stretcher and transfered onto ED cot with staff x3. pt is alert and oriented times three, able to speak in 4-5 word phrases, is able to move all extremities, and with resp even and unlabored. skin is pale, warm, dry, and intact with darker scaly skin to bilat lower legs that pt states is from recent cellulitic infection. reports that IM zofran administered in ambulance helped "a lot" but is still nauseated. denies abd pain, change in appetite, difficulty with urinary or bowel elimination, sob, difficulty breathing, lightheadedness, dizziness. states that he has heartburn that is normal for him and he feels has been exacerbated by vomiting. abdomen is soft, flat, nondistended, nontender to touch, and with positive bowel sounds in all quadrants. Timing/Duration: day(s) (2) Activities at Onset: none Quality: cramping Abdominal Pain Onset Location: generalized abdomen Pain Radiation: no radiation Severity of Pain-Max: mild (To moderate) Severity of Pain-Current: mild (To moderate) Associated Symptoms: loss of appetite, nausea, vomiting, weakness Previous symptoms: same symptoms as today, no recent treatment Hx Tetanus, Diphtheria Vaccination/Date Given: No (unknown) Hx Influenza Vaccination/Date Given: Yes Hx Pneumococcal Vaccination/Date Given: No Immunizations Up to Date: No <MARTI ASCENCIO - Last Filed: 05/17/23 06:49> <DELMER PITT - Last Filed: 05/17/23 09:17> - History of Present Illness Time Seen by Provider: 05/17/23 05:55 Physician History: This is a 42-year-old white male patient who is insulin-dependent diabetic and has been on an insulin pump. However, 2 days ago, his insulin pump ran out of insulin and his glucose monitoring device batteries "". Patient has been checking his blood sugar every 2 hours and giving himself short acting insulin subcutaneous injections. It has been in the last 2 days he is also noticed nausea. His symptoms of nausea have become more significant leading to 5 episodes of vomiting in the last 12 hours. Patient has a history of gastroparesis. Patient was brought to the emergency department by the paramedics. Patient has been treated for cellulitis by infectious disease specialist Dr. Cueva. Patient has a research consultant Dr. Jewell and telecommunicator Dr. Haider. His blood sugar/Accu-Chek on arrival to the emergency department is 270. Patient does have abdominal pain. Patient denies chest pain. He has mild shortness of breath. Patient arrives to the emergency department without an intravenous line in place. Paramedics attempted several attempts. They were unsuccessful. (MARTI ASCENCIO) Allergies/Adverse Reactions: lorazepam [From Ativan] Adverse Reaction (Verified 05/17/23 05:04) "makes him crazy" Home Medications: Albuterol Sulfate [Proair Respiclick] 90 mcg IH DAILY 04/08/23 [History] Dapagliflozin Propanediol [Farxiga] 5 mg PO DAILY 04/08/23 [History] Guaifenesin 600 mg ER [Mucinex 600MG ER Tabs] 600 mg PO BID 04/08/23 [History] Metoprolol Tartrate 50 mg [Lopressor 50 MG] 50 mg PO TID 04/08/23 [ History] Ondansetron [Ondansetron Odt ] 4 mg PO Q6H PRN 04/08/23 [History] Pantoprazole Sodium [Protonix] 40 mg PO DAILY 04/08/23 [History] Pregabalin [Lyrica] 50 mg PO BID 04/08/23 [History] Travel Risk - International Travel Have you traveled outside of the country in past 3 weeks: No - Coronavirus Screening Are you exhibiting any of the following symptoms?: No Close contact with a COVID-19 positive Pt in past 14-21 Days: No - Vaccine Status Have you recieved a Covid-19 vaccination: Yes Optical Lab Technician: Moderna - Vaccination Dates Date of 2cond Vaccination (if applicable): unknown <MARTI ASCENCIO - Last Filed: 05/17/23 06:49> - Review of Systems Constitutional: Weakness Eyes: No Symptoms Ears, Nose, & Throat: No Symptoms Respiratory: No Symptoms Abdominal/Gastrointestinal: Abdominal Pain, Nausea, Vomiting, Appetite Changes Genitourinary Symptoms: No Symptoms Musculoskeletal: Arthralgias, Myalgias Neurological: No Symptoms Psychological: No Symptoms Endocrine: No Symptoms Hematologic/Lymphatic: No Symptoms Immunological/Allergic: No Symptoms All Other Systems: Reviewed and Negative <MARTI ASCENCIO - Last Filed: 05/17/23 06:49> - Past Medical History Pertinent Past Medical History: Yes Neurological History: Stroke ENT History: Glaucoma Cardiac History: Congestive Heart Failure Respiratory History: No Pertinent History Endocrine Medical History: Diabetes Type I, Other Musculoskeletal History: No Pertinent History GI Medical History: GI Bleed, Other History: No Pertinent History Psycho-Social History: Depression Male Reproductive Disorders: Other Other Medical History: hx of collasped lung,major GI bleed in 2003. removal of 4 feet of small intestin,failed pancreasatic transplant, Pt states. CELLULITIS. gastroparesis - Past Surgical History Past Surgical History: Yes Neuro Surgical History: No Pertinent History Cardiac: Vascular Surgery Respiratory: No Pertinent History Gastrointestinal: Bowel Surgery, Pancreatic Surgery Genitourinary: No Pertinent History Musculoskeletal: No Pertinent History Male Surgical History: No Pertinent History, Other Other Surgical History: hydrocele repair. fem fem bypass - Social History Smoking Status: Never smoker Exposure to second hand smoke: Yes Drug Use: none, methamphetamines Patient Lives Alone: No <MARTI ASCENCIO - Last Filed: 05/17/23 06:49> - Physical Exam General Appearance: mild distress (To moderate), alert, anxiety, thin Eye Exam: PERRL/EOMI, eyes nml inspection Ears, Nose, Throat Exam: dry mucous membranes Neck Exam: normal inspection, non-tender, supple, full range of motion Respiratory Exam: normal breath sounds, lungs clear, airway intact, No chest tenderness, No respiratory distress Cardiovascular Exam: tachycardia Gastrointestinal/Abdomen Exam: soft, normal bowel sounds, tenderness, guarding, No rebound Rectal Exam: not done Back Exam: normal inspection, normal range of motion, No CVA tenderness, No vertebral tenderness Extremity Exam: normal range of motion, pelvis stable, other (Bilateral lower e xtremity venous stasis disease. Skin very dry from the level of the mid tibia bilaterally distally) Neurologic Exam: alert, oriented x 3, cooperative, audit intern II-XII nml as tested Skin Exam: warm, dry Lymphatic Exam: No adenopathy SpO2 Interpretation: normal SpO2: 98 O2 Delivery: Room Air <MARTI ASCENCIO - Last Filed: 05/17/23 06:49> - Nursing Vital Signs Nursing Vital Signs: Initial Vital Signs Temperature 98.8 F 05/17/23 05:08 Pulse Rate 121 H 05/17/23 05:08 Respiratory Rate 21 05/17/23 05:08 Blood Pressure 170/98 05/17/23 05:08 O2 Sat by Pulse Oximetry 98 05/17/23 05:08 Pain Scale Pain Intensity 0 - Course Nursing assessment & vital signs reviewed: Yes - CT Exams Abdomen/Pelvis CT Interpretation: Tele-radiologist Report (Entire large bowel loaded with fecal matter. New calcifications/calcified nodules are noted along the right common iliac artery. No other acute abnormality detected) <DELMER PITT - Last Filed: 05/17/23 09:17> Ordered Tests: Active Orders 24 hr Category Date Time Status Clean Catch Urine Specimen STAT Care 05/17/23 06:06 Active IV Insertion STAT Care 05/17/23 06:06 Active ABDOMEN AND PELVIS W/0 CONTRAS [CT] Stat Exams 05/17/23 06:07 Completed AMYLASE Stat Lab 05/17/23 06:00 Completed BLOOD CULTURE Stat Lab 05/17/23 06:07 Received CBC W DIFF Stat Lab 05/17/23 06:00 Completed CMP Stat Lab 05/17/23 06:00 Completed LIPASE Stat Lab 05/17/23 06:00 Completed Lactic Acid Stat Lab 05/17/23 06:15 Completed MONO SCREEN Stat Lab 05/17/23 06:00 Completed POCT GLUCOSE Stat Lab 05/17/23 05:10 Completed UA W/RFX UR CULTURE Stat Lab 05/17/23 08:55 Ordered Urine Triage Profile Stat Lab 05/17/23 08:55 Ordered Transfer Order Routine Transfer 05/17/23 Ordered Medication Summary Discontinued Medications Generic Name Dose Route Start Last Admin Trade Name Tiffanie PRN Reason Stop Dose Admin Sodium Chloride 1,000 mls @ 999 mls/hr 05/17/23 06:06 Sodium Chloride 0.9% 1000 Ml IV 05/17/23 07:06 .Q1H1M STA Sodium Chloride Confirm 05/17/23 06:30 Sodium Chloride 0.9% 1000 Ml Administered 05/17/23 06:31 Dose 1,000 mls @ ud .ROUTE .STK-MED ONE Ondansetron HCl 4 mg 05/17/23 06:06 05/17/23 06:32 Ondansetron Hcl 4 Mg/2 Ml Vial IV 05/17/23 06:07 4 mg STAT ONE Administration Ondansetron HCl Confirm 05/17/23 06:30 Ondansetron Hcl 4 Mg/2 Ml Vial Administered 05/17/23 06:31 Dose 4 mg .ROUTE .STK-MED ONE Pantoprazole Sodium 40 mg 05/17/23 06:06 Pantoprazole 40 Mg Vial IV 05/17/23 06:07 STAT ONE Pantoprazole Sodium Confirm 05/17/23 06:30 Pantoprazole 40 Mg Vial Administered 05/17/23 06:31 Dose 40 mg IV .STK-MED ONE Lab/Rad Data: Laboratory Result Diagrams 05/17/23 06:00 05/17/23 06:00 Laboratory Results 05/17/23 05/17/23 05/17/23 Range/Units 06:24 06:15 06:00 WBC (4.0-10.5) x10^3/uL RBC (4.1-5.6) x10^6/uL Hgb (12.5-18.0) g/dL Hct (42-50) % MCV (78-100) fL MCH (26-32) pg MCHC (32-36) g/dL RDW (11.5-14.0) % Plt Count (150-450) x10^3/uL MPV (7.5-11.0) fL Gran % (36.0-66.0) % Immature Gran % (Auto) (0.00-0.4) % Nucleat RBC Rel Count (0.00-0.1) % Eos # (Auto) (0-0.5) x10^3/uL Immature Gran # (Auto) (0.00-0.03) x10^3u/L Absolute Lymphs (auto) (1.0-4.6) x10^3/uL Absolute Monos (auto) (0.0-1.3) x10^3/uL Absolute Nucleated RBC (0.00-0.01) x10^3u/L Lymphocytes % (24.0-44.0) % Monocytes % (0.0-12.0) % Eosinophils % (0.00-5.0) % Basophils % (0.0-0.4) % Absolute Granulocytes (1.4-6.9) x10^3/uL Basophils # (0-0.4) x10^3/uL Sodium (137-145) mmol/L Potassium (3.5-5.1) mmol/L Chloride (98-107) mmol/L Carbon Dioxide (22-30) mmol/L Anion Gap (5-15) MEQ/L BUN (9-20) mg/dL Creatinine (0.66-1.25) mg/dL Estimated GFR ML/MIN Glucose (74-106) mg/dL POC Glucometer (74 to 106) mg/dL Lactic Acid 2.0 (0.4-2.0) Calcium (8.4-10.2) mg/dL Total Bilirubin (0.2-1.3) mg/dL AST (17-59) U/L ALT (0-50) U/L Alkaline Phosphatase (38-126) U/L Serum Total Protein (6.3-8.2) g/dL Albumin (3.5-5.0) g/dL Amylase (30-110) U/L Lipase (23-300) U/L Monoscreen NEGATIVE (NEGATIVE) Influenza Type A Ag NEGATIVE (NEGATIVE) Influenza Type B Ag NEGATIVE (NEGATIVE) RSV (PCR) POSITIVE (NEGATIVE) SARS-CoV-2 (PCR) NEGATIVE (NEGATIVE) 05/17/23 05/17/23 05/17/23 Range/Units 06:00 06:00 05:10 WBC 17.0 H (4.0-10.5) x10^3/uL RBC 5.28 (4.1-5.6) x10^6/uL Hgb 13.6 (12.5-18.0) g/dL Hct 42.6 (42-50) % MCV 80.7 (78-100) fL MCH 25.8 L (26-32) pg MCHC 31.9 L (32-36) g/dL RDW 13.7 (11.5-14.0) % Plt Count 753 H (150-450) x10^3/uL MPV 8.9 (7.5-11.0) fL Gran % 85.2 H (36.0-66.0) % Immature Gran % (Auto) 0.7 H (0.00-0.4) % Nucleat RBC Rel Count 0.0 (0.00-0.1) % Eos # (Auto) 0.01 (0-0.5) x10^3/uL Immature Gran # (Auto) 0.12 H (0.00-0.03) x10^3u/L Absolute Lymphs (auto) 1.22 (1.0-4.6) x10^3/uL Absolute Monos (auto) 1.11 (0.0-1.3) x10^3/uL Absolute Nucleated RBC 0.00 (0.00-0.01) x10^3u/L Lymphocytes % 7.2 L (24.0-44.0) % Monocytes % 6.5 (0.0-12.0) % Eosinophils % 0.1 (0.00-5.0) % Basophils % 0.3 (0.0-0.4) % Absolute Granulocytes 14.52 H (1.4-6.9) x10^3/uL Basophils # 0.05 (0-0.4) x10^3/uL Sodium 134 L (137-145) mmol/L Potassium 3.8 (3.5-5.1) mmol/L Chloride 95 L (98-107) mmol/L Carbon Dioxide 28 (22-30) mmol/L Anion Gap 14.3 (5-15) MEQ/L BUN 37 H (9-20) mg/dL Creatinine 1.73 H (0.66-1.25) mg/dL Estimated GFR 50.6 ML/MIN Glucose 257 H (74-106) mg/dL POC Glucometer 270 H (74 to 106) mg/dL Lactic Acid (0.4-2.0) Calcium 10.0 (8.4-10.2) mg/dL Total Bilirubin 0.70 (0.2-1.3) mg/dL AST 20 (17-59) U/L ALT 15 (0-50) U/L Alkaline Phosphatase 259 H (38-126) U/L Serum Total Protein 7.6 (6.3-8.2) g/dL Albumin 3.4 L (3.5-5.0) g/dL Amylase 76 (30-110) U/L Lipase 56 (23-300) U/L Monoscreen (NEGATIVE) Influenza Type A Ag (NEGATIVE) Influenza Type B Ag (NEGATIVE) RSV (PCR) (NEGATIVE) SARS-CoV-2 (PCR) (NEGATIVE) <MARTI ASCENCIO - Last Filed: 05/17/23 06:49> - Progress Progress: improved Discussed with DrRad: Other (Case discussed with Dr. Lindo at 9:08 AM. Patient accepted for admission at 9:08 AM) Counseled pt/family regarding: lab results, diagnosis, rad results <DELMER PITT - Last Filed: 05/17/23 09:17> - Progress Progress Note: 05/17/23 06:03 This patient's medical issue is 1 of moderate to high complexity. Level complexity and the workup performed is based on review of the patient's past medical history, review of the patient's medication list, review of patient drug allergy list, history present illness and physical findings on examination. Workup in this patient includes intravenous line that was placed under ultras ound guidance and took a bit of time because patient has poor peripheral access, CBC, CMP, urinalysis, urine drug screen, infusion of 1 L normal saline solution, infusion of Protonix 40 mg intravenously, infusion of 4 mg intravenous Zofran, amylase, lipase, CT scan of the abdomen pelvis without contrast, viral swabs and monotest. 05/17/23 06:28 Patient care will be transferred to Dr. Pitt at shift change. He will follow-up with test results and make final disposition. (MARTI ASCENCIO) 42-year-old male endorsed to Dr. Pitt at approximately [address] Pitt advised f ollow-up pending studies and disposition accordingly. Workup reveals a dehydration with acute renal injury. Patient is RSV positive. Leukocytosis and thrombocytosis observed on laboratory workup. However this may be due to hemoconcentration from dehydration and nausea and vomiting. Likely triggered by RSV. Patient is not in DKA. Although there is a hyperglycemia of 157. We are currently working on obtaining IV access. Nurses have tried. We are currently waiting for SENIOR NET C DEVELOPER to place IV. Plan of care discussed with patient. He agrees to admission to [facility] for further evaluation and treatment. Portions of this note were created with voice recognition technology. There may be grammatical, spelling, punctuation or sound alike errors 05/17/23 09:13 (DELMER PITT) - Departure Departure Disposition: Observation Critical Care Time: No <MARTI ASCENCIO - Last Filed: 05/17/23 06:49> <DELMER PITT - Last Filed: 05/17/23 09:17> - Departure Clinical Impression: Hyperglycemia, Vomiting, RSV exposure, Constipation, Leukocytosis, Thrombocytosis, Dehydration, Nausea and vomiting, suture material right iliac fossa, Acute renal injury Condition: Stable Referrals: MICHELLE WILSON [Primary Care Provider] - Follow up/PCP as directed
[2023-05-17] MEDS ORDERED: Zofran 4 MG/2 ML VIAL IV ONE (06:06)
[2023-05-17 06:14] LABS: Absolute Neutrophil Ct (ANC) 14.52 x10^3/uL (1.4-6.9); BASOPHIL % 0.3 % (0.0-0.4); Basophil (Absolute #) 0.05 x10^3/uL (0-0.4); Eosinophil % 0.1 % (0.00-5.0); Eosinophil (Absolute #) 0.01 x10^3/uL (0-0.5); Hematocrit 42.6 % (42-50); Hemoglobin 13.6 g/dL (12.5-18.0); IMMATURE GRAN # 0.12 x10^3u/L (0.00-0.03); IMMATURE GRAN % 0.7 % (0.00-0.4); Lymphocyte (Absolute #) 1.22 x10^3/uL (1.0-4.6); Lymphocytes % 7.2 % (24.0-44.0); Mean Cell Volume 80.7 fL (78-100); Mean Corpuscular Hemoglobin 25.8 pg (26-32); Mean Corpuscular Hgb Concent. 31.9 g/dL (32-36); Mean Platelet Volume 8.9 fL (7.5-11.0); Monocyte (Absolute #) 1.11 x10^3/uL (0.0-1.3); Monocytes % 6.5 % (0.0-12.0); Neutrophil % 85.2 % (36.0-66.0); Platelet Count 753 x10^3/uL (150-450); Red Blood Count 5.28 x10^6/uL (4.1-5.6); Red Cell Distribution Width 13.7 % (11.5-14.0)
[2023-05-17 06:30] LABS: ALBUMIN 3.4 g/dL (3.5-5.0); ANION GAP 14.3 MEQ/L (5-15); BILIRUBIN,TOTAL 0.7 mg/dL (0.2-1.3); Creatinine 1 1.73 mg/dL (0.66-1.25); EST GLOMERULAR FILTRATION RATE 50.6 ML/MIN; Potassium 3.8 mmol/L (3.5-5.1); Total Protein 7.6 g/dL (6.3-8.2)
[2023-05-17] MEDS ORDERED: Zofran 4 MG/2 ML VIAL ONE (06:30)
[2023-05-17] MEDS ORDERED: PROTONIX 40 MG IV IV ONE (06:30)
[2023-05-17] MEDS ORDERED: Sodium Chloride 0.9% 1000 ML 1,000 ML ONE (06:30)
[2023-05-17] MEDS: Sodium Chloride 0.9% 1000 ML 1,000 ML IV STA ×2 (06:31→09:58)
[2023-05-17] MEDS: PROTONIX 40 MG IV IV ONE ×2 (06:32→09:57)
--- NOTE | 2023-05-17 07:18 | XRAY ---
CLINICAL HISTORY: ABD pain; vomiting TECHNIQUE: Contiguous axial images were obtained from the level of the diaphragm to the pubic symphysis without intravenous or oral contrast. Coronal and sagittal reconstructions were likewise performed and indicated to increase the sensitivity for detecting clinically relevant pathology. CT scan was performed according to ALARA (as low as reasonable achievable). COMPARISON: None FINDINGS: The visualized lung bases are clear. Evaluation of the abdominal and pelvic visceral organs is limited without intravenous contrast. The unenhanced liver, spleen, pancreas, and adrenal glands are grossly unremarkable. The gallbladder is present. The kidneys are normal in size and attenuation without obvious calcification. There is no hydronephrosis or perinephric stranding. The ureters are normal in caliber. No adenopathy or fluid collections are seen. No evidence of focal or diffuse bowel wall thickening or evidence of bowel obstruction is seen. The aorta is normal in caliber. The urinary bladder is normal in contour. Pelvic viscera are grossly unremarkable. No aggressive appearing osseous lesions are identified. Few calcifications/ calcified nodes are noted along the right common iliac artery. Linear radio dense suture material noted in right iliac fossa adjacent to small bowel loops-kindly correlate with previous clinical profile. Entire large bowel loaded with fecal matter. IMPRESSION: 1. Few calcifications/ calcified nodes are noted along the right common iliac artery. 2. No other acute abnormality detected. Electronically Signed by: Dr. Madan Mensah MD. (05/17/2023 07:14:20 EST)
[2023-05-17 07:20] LABS: INFLUENZA A NEGATIVE (NEGATIVE); INFLUENZA B NEGATIVE (NEGATIVE); SARS-CoV-2 Xpert Express NEGATIVE (NEGATIVE)
[2023-05-17 07:41] LABS: RESPIRATORY SYNCTIAL VIRUS POSITIVE (NEGATIVE)
[2023-05-17 09:57] LABS: Amphetamine,Urine NEGATIVE (NEGATIVE); Barbiturate,Urine NEGATIVE (NEGATIVE); Benzodiazepine,Urine NEGATIVE (NEGATIVE); Cocaine,Urine NEGATIVE (NEGATIVE); Methadone,Urine NEGATIVE (NEGATIVE); Opiate,Urine NEGATIVE (NEGATIVE); PCP,Urine NEGATIVE (NEGATIVE); THC,Urine NEGATIVE (NEGATIVE)
[2023-05-17 09:58] LABS: Appearance Clear (Clear); Bacteria None Seen /HPF (None Seen); Bilirubin Negative (Negative); Blood Moderate (Negative); Epithelial Cells Rare /HPF (None Seen); Glucose, Urine >=1000 mg/dL (Negative); Ketones 40 (Negative); Leukocyte Esterase Negative (Negative); Nitrite Negative (Negative); Ph 5.5 (4.6-8.0); Protein,Urine Dip 300 (Negative); Specific Gravity >=1.030 (1.005-1.030); Urobilinogen 0.2 mg/dL (0.2); WBC 0-2 /HPF (0-5)
[2023-05-17] MEDS ORDERED: Xylocaine-Mpf 2% 5 Ml Vial ONE (10:00)
[2023-05-17 10:15] LABS: ADD URINE CULTURE? YES (NO); Hyaline Casts 20-50 /LPF (0-2)
[2023-05-17] MEDS ORDERED: ZOFRAN ODT 4 MG PO ONE (10:22)
--- NOTE | 2023-05-17 10:33 | PCM.HP ---
History of Present Illness - Chief Complaint Chief Complaint: Nausea and vomiting, dehydration, acute renal injury Date: 05/17/23 History of Present Illness: is a 42 year old male with a pmhx of CHF, stroke, T1D ( on insulin pump), GI bleed who presented to ED 05/17/23 with complaints of a two day history of nausea and vomiting. He reports that he has been unable to tolerate a diet. Patient states he normally uses his insulin pump for his diabetes but his pump ran out of insulin and CGM batteries ran out so he has been using subQ Novolog, last dose was around 1 a.m. He also endorses a dry cough. In ED patient tachycardic, tachypneic, and hypertensive. CT of the abd/pelvis demonstrating fecal stasis, a few calcifications/ calcified nodes are noted along the right common iliacartery, otherwise unremarkable. Lab findings remarkable for leukocytosis with wbc at 17.0, mild hyponatremia at 134, CALLIE with BUN 37, creat 1.73, hyperglycemia at 270, RSV positive. UDS negative. - Review of Systems Constitutional: Weakness, Weight Loss, Other (sweats) Eyes: No Symptoms Ears, Nose, & Throat: No Symptoms Respiratory: Cough (dry) Cardiac: No Symptoms Abdominal/Gastrointestinal: Nausea, Vomiting Genitourinary Symptoms: No Symptoms Musculoskeletal: No Symptoms Skin: No Symptoms Neurological: Headache Psychological: No Symptoms Endocrine: No Symptoms Hematologic/Lymphatic: No Symptoms Immunological/Allergic: No Symptoms Medications & Allergies Home Medications: Home Medication List Albuterol Sulfate [Proair Respiclick] 90 mcg IH DAILY 04/08/23 [History Confirmed 05/17/23] Dapagliflozin Propanediol [Farxiga] 5 mg PO DAILY 04/08/23 [History Confirmed 05/17/23] Guaifenesin 600 mg ER [Mucinex 600MG ER Tabs] 600 mg PO BID 04/08/23 [History Confirmed 05/17/23] Metoprolol Tartrate 50 mg [Lopressor 50 MG] 50 mg PO TID 04/08/23 [History Confirmed 05/17/23] Ondansetron [Ondansetron Odt ] 4 mg PO Q6H PRN 04/08/23 [History Confirmed 05/17/23] Pantoprazole Sodium [Protonix] 40 mg PO DAILY 04/08/23 [History Confirmed 05/17/23] Pregabalin [Lyrica] 50 mg PO BID 04/08/23 [History Confirmed 05/17/23] Allergies/Adverse Reactions: Allergies Allergy/AdvReac Type Severity Reaction Status Date / Time lorazepam [From Ativan] AdvReac Verified 05/17/23 05:04 - Past Medical History Past Medical History: Yes Neurological History: Stroke ENT History: Glaucoma Cardiac History: Congestive Heart Failure Respiratory History: No Pertinent History Endocrine Medical History: Diabetes Type I, Other Musculoskelatal History: No Pertinent History GI Medical History: GI Bleed, Other History: No Pertinent History Pyscho-Social History: Depression Male Reproductive Disorders: Other Comment: hx of collasped lung,major GI bleed in 2003. removal of 4 feet of small intestin,failed pancreasatic transplant, Pt states. CELLULITIS. gastroparesis - Past Surgical History Past Surgical History: Yes Neuro Surgical History: No Pertinent History Cardiac History: Vascular Surgery Respiratory Surgery: No Pertinent History GI Surgical History: Bowel Surgery, Pancreatic Surgery Genitourinary Surgical Hx: No Pertinent History Musculskeletal Surgical Hx: No Pertinent History Male Surgical History: No Pertinent History, Other Other Surgical History: hydrocele repair. fem fem bypass - Social History Smoking Status: Never smoker Exposure to second hand smoke: Yes Alcohol: None Drug Use: none, methamphetamines - Physical Exam Vital Signs: Vital Signs - 24 hr Temp Pulse Resp BP BP Pulse Ox 05/17/23 09:43 97.2 F 121 H 16 179/75 100 05/17/23 09:04 122 H 14 96 05/17/23 07:00 117 H 18 153/81 100 05/17/23 06:50 98 05/17/23 06:45 116 H 14 163/86 100 05/17/23 06:30 117 H 15 180/97 97 05/17/23 06:00 119 H 14 175/86 99 05/17/23 05:30 115 H 12 185/103 99 05/17/23 05:08 98.8 F 123 H 26 H 170/98 97 General Appearance: no apparent distress Neurologic Exam: alert, oriented x 3, cooperative Eye Exam: PERRL/EOMI Ears, Nose, Throat Exam: normal ENT inspection, dry mucous membranes Neck Exam: normal inspection Respiratory Exam: normal breath sounds Cardiovascular Exam: tachycardia Gastrointestinal/Abdomen Exam: soft, normal bowel sounds Rectal Exam: deferred Back Exam: normal inspection Extremity Exam: normal inspection Skin Exam: normal color Results - Labs Lab/Micro Results: Lab Results-Last 24 Hours 05/17/23 05/17/23 05/17/23 Range/Units 05:10 06:00 06:00 WBC 17.0 H (4.0-10.5) x10^3/uL RBC 5.28 (4.1-5.6) x10^6/uL Hgb 13.6 (12.5-18.0) g/dL Hct 42.6 (42-50) % MCV 80.7 (78-100) fL MCH 25.8 L (26-32) pg MCHC 31.9 L (32-36) g/dL RDW 13.7 (11.5-14.0) % Plt Count 753 H (150-450) x10^3/uL MPV 8.9 (7.5-11.0) fL Gran % 85.2 H (36.0-66.0) % Immature Gran % (Auto) 0.7 H (0.00-0.4) % Nucleat RBC Rel Count 0.0 (0.00-0.1) % Eos # (Auto) 0.01 (0-0.5) x10^3/uL Immature Gran # (Auto) 0.12 H (0.00-0.03) x10^3u/L Absolute Lymphs (auto) 1.22 (1.0-4.6) x10^3/uL Absolute Monos (auto) 1.11 (0.0-1.3) x10^3/uL Absolute Nucleated RBC 0.00 (0.00-0.01) x10^3u/L Lymphocytes % 7.2 L (24.0-44.0) % Monocytes % 6.5 (0.0-12.0) % Eosinophils % 0.1 (0.00-5.0) % Basophils % 0.3 (0.0-0.4) % Absolute Granulocytes 14.52 H (1.4-6.9) x10^3/uL Basophils # 0.05 (0-0.4) x10^3/uL Sodium 134 L (137-145) mmol/L Potassium 3.8 (3.5-5.1) mmol/L Chloride 95 L (98-107) mmol/L Carbon Dioxide 28 (22-30) mmol/L Anion Gap 14.3 (5-15) MEQ/L BUN 37 H (9-20) mg/dL Creatinine 1.73 H (0.66-1.25) mg/dL Estimated GFR 50.6 ML/MIN Glucose 257 H (74-106) mg/dL POC Glucometer 270 H (74 to 106) mg/dL Lactic Acid (0.4-2.0) Calcium 10.0 (8.4-10.2) mg/dL Total Bilirubin 0.70 (0.2-1.3) mg/dL AST 20 (17-59) U/L ALT 15 (0-50) U/L Alkaline Phosphatase 259 H (38-126) U/L Serum Total Protein 7.6 (6.3-8.2) g/dL Albumin 3.4 L (3.5-5.0) g/dL Amylase 76 (30-110) U/L Lipase 56 (23-300) U/L Urine Color (Yellow) Urine Appearance (Clear) Urine pH (4.6-8.0) Ur Specific [place] (1.005-1.030) Urine Protein (Negative) Urine Glucose (UA) (Negative) mg/dL Urine Ketones (Negative) Urine Blood (Negative) Urine Nitrite (Negative) Urine Bilirubin (Negative) Urine Urobilinogen (0.2) mg/dL Ur Leukocyte Esterase (Negative) U Hyaline Cast (Auto) (0-2) /LPF Urine Microscopic RBC (0-5) /HPF Urine Microscopic WBC (0-5) /HPF Ur Epithelial Cells (None Seen) /HPF Urine Bacteria (None Seen) /HPF Urine Culture Reflexed (NO) Urine Opiates Level (NEGATIVE) Ur Methadone (NEGATIVE) Urine Barbiturates (NEGATIVE) Ur Phencyclidine (PCP) (NEGATIVE) Urine Amphetamine (NEGATIVE) U Benzodiazepine Level (NEGATIVE) Urine Cocaine (NEGATIVE) Urine Marijuana (THC) (NEGATIVE) Monoscreen (NEGATIVE) Influenza Type A Ag (NEGATIVE) Influenza Type B Ag (NEGATIVE) RSV (PCR) (NEGATIVE) SARS-CoV-2 (PCR) (NEGATIVE) 05/17/23 05/17/23 05/17/23 Range/Units 06:00 06:15 06:24 WBC (4.0-10.5) x10^3/uL RBC (4.1-5.6) x10^6/uL Hgb (12.5-18.0) g/dL Hct (42-50) % MCV (78-100) fL MCH (26-32) pg MCHC (32-36) g/dL RDW (11.5-14.0) % Plt Count (150-450) x10^3/uL MPV (7.5-11.0) fL Gran % (36.0-66.0) % Immature Gran % (Auto) (0.00-0.4) % Nucleat RBC Rel Count (0.00-0.1) % Eos # (Auto) (0-0.5) x10^3/uL Immature Gran # (Auto) (0.00-0.03) x10^3u/L Absolute Lymphs (auto) (1.0-4.6) x10^3/uL Absolute Monos (auto) (0.0-1.3) x10^3/uL Absolute Nucleated RBC (0.00-0.01) x10^3u/L Lymphocytes % (24.0-44.0) % Monocytes % (0.0-12.0) % Eosinophils % (0.00-5.0) % Basophils % (0.0-0.4) % Absolute Granulocytes (1.4-6.9) x10^3/uL Basophils # (0-0.4) x10^3/uL Sodium (137-145) mmol/L Potassium (3.5-5.1) mmol/L Chloride (98-107) mmol/L Carbon Dioxide (22-30) mmol/L Anion Gap (5-15) MEQ/L BUN (9-20) mg/dL Creatinine (0.66-1.25) mg/dL Estimated GFR ML/MIN Glucose (74-106) mg/dL POC Glucometer (74 to 106) mg/dL Lactic Acid 2.0 (0.4-2.0) Calcium (8.4-10.2) mg/dL Total Bilirubin (0.2-1.3) mg/dL AST (17-59) U/L ALT (0-50) U/L Alkaline Phosphatase (38-126) U/L Serum Total Protein (6.3-8.2) g/dL Albumin (3.5-5.0) g/dL Amylase (30-110) U/L Lipase (23-300) U/L Urine Color (Yellow) Urine Appearance (Clear) Urine pH (4.6-8.0) Ur Specific [place] (1.005-1.030) Urine Protein (Negative) Urine Glucose (UA) (Negative) mg/dL Urine Ketones (Negative) Urine Blood (Negative) Urine Nitrite (Negative) Urine Bilirubin (Negative) Urine Urobilinogen (0.2) mg/dL Ur Leukocyte Esterase (Negative) U Hyaline Cast (Auto) (0-2) /LPF Urine Microscopic RBC (0-5) /HPF Urine Microscopic WBC (0-5) /HPF Ur Epithelial Cells (None Seen) /HPF Urine Bacteria (None Seen) /HPF Urine Culture Reflexed (NO) Urine Opiates Level (NEGATIVE) Ur Methadone (NEGATIVE) Urine Barbiturates (NEGATIVE) Ur Phencyclidine (PCP) (NEGATIVE) Urine Amphetamine (NEGATIVE) U Benzodiazepine Level (NEGATIVE) Urine Cocaine (NEGATIVE) Urine Marijuana (THC) (NEGATIVE) Monoscreen NEGATIVE (NEGATIVE) Influenza Type A Ag NEGATIVE (NEGATIVE) Influenza Type B Ag NEGATIVE (NEGATIVE) RSV (PCR) POSITIVE (NEGATIVE) SARS-CoV-2 (PCR) NEGATIVE (NEGATIVE) 05/17/23 05/17/23 Range/Units 08:55 08:55 WBC (4.0-10.5) x10^3/uL RBC (4.1-5.6) x10^6/uL Hgb (12.5-18.0) g/dL Hct (42-50) % MCV (78-100) fL MCH (26-32) pg MCHC (32-36) g/dL RDW (11.5-14.0) % Plt Count (150-450) x10^3/uL MPV (7.5-11.0) fL Gran % (36.0-66.0) % Immature Gran % (Auto) (0.00-0.4) % Nucleat RBC Rel Count (0.00-0.1) % Eos # (Auto) (0-0.5) x10^3/uL Immature Gran # (Auto) (0.00-0.03) x10^3u/L Absolute Lymphs (auto) (1.0-4.6) x10^3/uL Absolute Monos (auto) (0.0-1.3) x10^3/uL Absolute Nucleated RBC (0.00-0.01) x10^3u/L Lymphocytes % (24.0-44.0) % Monocytes % (0.0-12.0) % Eosinophils % (0.00-5.0) % Basophils % (0.0-0.4) % Absolute Granulocytes (1.4-6.9) x10^3/uL Basophils # (0-0.4) x10^3/uL Sodium (137-145) mmol/L Potassium (3.5-5.1) mmol/L Chloride (98-107) mmol/L Carbon Dioxide (22-30) mmol/L Anion Gap (5-15) MEQ/L BUN (9-20) mg/dL Creatinine (0.66-1.25) mg/dL Estimated GFR ML/MIN Glucose (74-106) mg/dL POC Glucometer (74 to 106) mg/dL Lactic Acid (0.4-2.0) Calcium (8.4-10.2) mg/dL Total Bilirubin (0.2-1.3) mg/dL AST (17-59) U/L ALT (0-50) U/L Alkaline Phosphatase (38-126) U/L Serum Total Protein (6.3-8.2) g/dL Albumin (3.5-5.0) g/dL Amylase (30-110) U/L Lipase (23-300) U/L Urine Color Yellow (Yellow) Urine Appearance Clear (Clear) Urine pH 5.5 (4.6-8.0) Ur Specific [place] >=1.030 A (1.005-1.030) Urine Protein 300 A (Negative) Urine Glucose (UA) >=1000 A (Negative) mg/dL Urine Ketones 40 A (Negative) Urine Blood Moderate A (Negative) Urine Nitrite Negative (Negative) Urine Bilirubin Negative (Negative) Urine Urobilinogen 0.2 (0.2) mg/dL Ur Leukocyte Esterase Negative (Negative) U Hyaline Cast (Auto) 20-50 (0-2) /LPF Urine Microscopic RBC 6-10 A (0-5) /HPF Urine Microscopic WBC 0-2 (0-5) /HPF Ur Epithelial Cells Rare (None Seen) /HPF Urine Bacteria None Seen (None Seen) /HPF Urine Culture Reflexed YES (NO) Urine Opiates Level NEGATIVE (NEGATIVE) Ur Methadone NEGATIVE (NEGATIVE) Urine Barbiturates NEGATIVE (NEGATIVE) Ur Phencyclidine (PCP) NEGATIVE (NEGATIVE) Urine Amphetamine NEGATIVE (NEGATIVE) U Benzodiazepine Level NEGATIVE (NEGATIVE) Urine Cocaine NEGATIVE (NEGATIVE) Urine Marijuana (THC) NEGATIVE (NEGATIVE) Monoscreen (NEGATIVE) Influenza Type A Ag (NEGATIVE) Influenza Type B Ag (NEGATIVE) RSV (PCR) (NEGATIVE) SARS-CoV-2 (PCR) (NEGATIVE) - Radiology Impressions Radiology Exams & Impressions: Radiology Procedures Category Date Time Status ABDOMEN AND PELVIS W/0 CONTRAS [CT] Stat Exams 05/17/23 06:07 Completed Assessment/Plan (1) Acute renal injury Current Visit: Yes Status: Acute Assessment & Plan: -Gentle hydration -I&O -Monitor for fluid overload -Avoid ACEI/ARBs/NSAIDS/Diuretics -Monitor renal /lytes daily Code(s): N17.9 - ACUTE KIDNEY FAILURE, UNSPECIFIED (2) RSV (acute bronchiolitis due to respiratory syncytial virus) Current Visit: Yes Status: Acute Assessment & Plan: -supportive therapies -Supplemental oxygen for spo2 goal >92% -cxr (3) Leukocytosis Current Visit: Yes Status: Acute Assessment & Plan: -Most likely secondary to N/V, trend -RSV positive, will order cxr to r/o secondary bacterial infection -UA with no findings of infection Code(s): D72.829 - ELEVATED WHITE BLOOD CELL COUNT, UNSPECIFIED (4) Nausea and vomiting Current Visit: Yes Status: Acute Assessment & Plan: -UDS/UA negative -RSV positive -supportive therapies -IVF, anti-emetics, CLD ADAT Code(s): R11.2 - NAUSEA WITH VOMITING, UNSPECIFIED (5) Uncontrolled type 1 diabetes mellitus Current Visit: No Status: Acute Assessment & Plan: -ADA diet -SSI, lantus for now, CM to discuss medications/pump -Pt to bring insulin pump, can resume when pump/supplies available Code(s): E10.65 - TYPE 1 DIABETES MELLITUS WITH HYPERGLYCEMIA
[2023-05-17] MEDS ORDERED: Compazine 10 MG/2 ML IV ONE (10:41)
[2023-05-17] MEDS ORDERED: Zofran 4 MG/2 ML VIAL IV PRN (11:28)
[2023-05-17] MEDS ORDERED: HUMALOG SQ PRN (11:28)
[2023-05-17] MEDS ORDERED: PROVENTIL 2.5 MG/3 ML NEB IH PRN (13:27)
[2023-05-17] MEDS: Sodium Chloride 0.9% 1000 ML 1,000 ML IV SCH ×2 (13:46→21:21)
[2023-05-17] MEDS: TYLENOL 325 MG PO PRN (16:07)
[2023-05-17] MEDS ORDERED: Valium 5 MG PO PRN (17:15)
[2023-05-17] MEDS ORDERED: NEURONTIN PO PRN (17:15)
[2023-05-17] MEDS: HUMALOG SQ PRN (17:44)
[2023-05-17] MEDS: Lopressor 50 MG PO SCH (21:22)
[2023-05-17] MEDS: Lyrica 50MG PO SCH (21:22)
[2023-05-17] MEDS: Lantus Insulin SQ SCH (21:22)
[2023-05-17] MEDS ORDERED: Lyrica 25 MG PO SCH (22:00)
[2023-05-17] MEDS ORDERED: Lantus Insulin SQ SCH (22:00)
[2023-05-18] MEDS: Sodium Chloride 0.9% 1000 ML 1,000 ML IV SCH (04:47)
[2023-05-18 05:16] LABS: Absolute Neutrophil Ct (ANC) 11.85 x10^3/uL (1.4-6.9); BASOPHIL % 0.3 % (0.0-0.4); Basophil (Absolute #) 0.04 x10^3/uL (0-0.4); Eosinophil % 0.2 % (0.00-5.0); Eosinophil (Absolute #) 0.03 x10^3/uL (0-0.5); Hematocrit 36.3 % (42-50); Hemoglobin 11.6 g/dL (12.5-18.0); IMMATURE GRAN # 0.07 x10^3u/L (0.00-0.03); IMMATURE GRAN % 0.5 % (0.00-0.4); Lymphocyte (Absolute #) 2.03 x10^3/uL (1.0-4.6); Lymphocytes % 13.2 % (24.0-44.0); Mean Cell Volume 81.2 fL (78-100); Monocyte (Absolute #) 1.31 x10^3/uL (0.0-1.3); Monocytes % 8.5 % (0.0-12.0); Neutrophil % 77.3 % (36.0-66.0); Platelet Count 620 x10^3/uL (150-450); Red Blood Count 4.47 x10^6/uL (4.1-5.6); Red Cell Distribution Width 13.9 % (11.5-14.0); White Blood Count 15.3 x10^3/uL (4.0-10.5)
--- NOTE | 2023-05-18 05:20 | PCM.NOTE ---
Date and Time: 05/18/23 0519 Subjective Assessment: is a 42 year old male with a pmhx of CHF, stroke, T1D ( on insulin pump), GI bleed who presented to ED 05/17/23 with complaints of a two day history of nausea and vomiting. He reports that he has been unable to tolerate a diet. Patient states he normally uses his insulin pump for his diabetes but his pump ran out of insulin and CGM batteries ran out so he has been using subQ Novolog, last dose was around 1 a.m. He also endorses a dry cough. In ED patient tachycardic, tachypneic, and hypertensive. CT of the abd/pelvis demonstrating fecal stasis, a few calcifications/ calcified nodes are noted along the right common iliacartery, otherwise unremarkable. Lab findings remarkable for leukocyt osis with wbc at 17.0, mild hyponatremia at 134, CALLIE with BUN 37, creat 1.73, hyperglycemia at 270, RSV positive. UDS negative. Patient admitted with CALLIE secondary to N/V and RSV, plan for IVF and anti-emetics. 05/18/23: Met with patient bedside. No further episodes of nausea and vomiting. Does endorse a cough. Blood glucose levels stabilizing. CXR pending. WBC downtrending. CALLIE improving. Continue to observe overnight, re-eval labs in the morning with possible discharge. Requested patient bring in insulin pump in order to check setting and blood glucose control once resumed, patient declines, states he knows his settings will be okay. Further states his pump is in working condition and he does have supplies and insulin at home. - Review of Systems Constitutional: No Symptoms Eyes: No Symptoms Ears, Nose, & Throat: No Symptoms Respiratory: Cough Cardiac: No Symptoms Abdominal/Gastrointestinal: No Symptoms Genitourinary Symptoms: No Symptoms Musculoskeletal: No Symptoms Skin: No Symptoms Neurological: No Symptoms Psychological: No Symptoms Endocrine: No Symptoms Hematologic/Lymphatic: No Symptoms Immunological/Allergic: No Symptoms Objective Exam General Appearance: no apparent distress Neurologic Exam: alert, oriented x 3, cooperative Skin Exam: normal color Eye Exam: PERRL Ears, Nose, Throat Exam: normal ENT inspection, moist mucous membranes Neck Exam: normal inspection Respiratory Exam: crackles/rales Cardiovascular Exam: regular rate/rhythm, normal heart sounds Gastrointestinal/Abdomen Exam: soft, normal bowel sounds Extremity Exam: normal inspection Back Exam: normal inspection Male Genitalia Exam: deferred Rectal Exam: deferred OBJECTIVE DATA Vital Signs: Vital Signs - 24 hr Temp Pulse Resp BP BP Pulse Ox 05/18/23 03:44 98.9 F 94 H 19 159/92 96 05/18/23 00:00 99.3 F 84 17 155/89 98 05/17/23 19:51 99.5 F 134 H 19 147/94 99 05/17/23 19:33 129 H 16 100 05/17/23 16:00 98.4 F 122 H 18 120/84 98 05/17/23 13:30 133 H 20 100 05/17/23 12:00 97.2 F 131 H 18 114/84 100 05/17/23 10:11 97.2 F 121 H 19 179/75 100 05/17/23 09:50 100 05/17/23 09:43 97.2 F 121 H 16 179/75 100 05/17/23 09:04 122 H 14 96 05/17/23 07:00 117 H 18 153/81 100 05/17/23 06:50 98 05/17/23 06:45 116 H 14 163/86 100 05/17/23 06:30 117 H 15 180/97 97 05/17/23 06:00 119 H 14 175/86 99 05/17/23 05:30 115 H 12 185/103 99 Pain Assessment - Last Documented Pain Intensity 2 Pain Scale Used 0-10 Pain Scale Intake and Output: Intake & Output 05/15/23 05/16/23 05/17/23 05/18/23 11:59 11:59 11:59 11:59 Intake Total 2653 Output Total 900 Balance 1753 Weight 53.2 kg Lab Results: Lab Results-Last 24 Hours 05/17/23 05/17/23 05/17/23 Range/Units 06:00 06:00 06:00 WBC 17.0 H (4.0-10.5) x10^3/uL RBC 5.28 (4.1-5.6) x10^6/uL Hgb 13.6 (12.5-18.0) g/dL Hct 42.6 (42-50) % MCV 80.7 (78-100) fL MCH 25.8 L (26-32) pg MCHC 31.9 L (32-36) g/dL RDW 13.7 (11.5-14.0) % Plt Count 753 H (150-450) x10^3/uL MPV 8.9 (7.5-11.0) fL Gran % 85.2 H (36.0-66.0) % Immature Gran % (Auto) 0.7 H (0.00-0.4) % Nucleat RBC Rel Count 0.0 (0.00-0.1) % Eos # (Auto) 0.01 (0-0.5) x10^3/uL Immature Gran # (Auto) 0.12 H (0.00-0.03) x10^3u/L Absolute Lymphs (auto) 1.22 (1.0-4.6) x10^3/uL Absolute Monos (auto) 1.11 (0.0-1.3) x10^3/uL Absolute Nucleated RBC 0.00 (0.00-0.01) x10^3u/L Lymphocytes % 7.2 L (24.0-44.0) % Monocytes % 6.5 (0.0-12.0) % Eosinophils % 0.1 (0.00-5.0) % Basophils % 0.3 (0.0-0.4) % Absolute Granulocytes 14.52 H (1.4-6.9) x10^3/uL Basophils # 0.05 (0-0.4) x10^3/uL Sodium 134 L (137-145) mmol/L Potassium 3.8 (3.5-5.1) mmol/L Chloride 95 L (98-107) mmol/L Carbon Dioxide 28 (22-30) mmol/L Anion Gap 14.3 (5-15) MEQ/L BUN 37 H (9-20) mg/dL Creatinine 1.73 H (0.66-1.25) mg/dL Estimated GFR 50.6 ML/MIN Glucose 257 H (74-106) mg/dL POC Glucometer (74 to 106) mg/dL Hemoglobin A1c (4.5-6.0) % Lactic Acid (0.4-2.0) Calcium 10.0 (8.4-10.2) mg/dL Total Bilirubin 0.70 (0.2-1.3) mg/dL AST 20 (17-59) U/L ALT 15 (0-50) U/L Alkaline Phosphatase 259 H (38-126) U/L Serum Total Protein 7.6 (6.3-8.2) g/dL Albumin 3.4 L (3.5-5.0) g/dL Amylase 76 (30-110) U/L Lipase 56 (23-300) U/L Urine Color (Yellow) Urine Appearance (Clear) Urine pH (4.6-8.0) Ur Specific [place] (1.005-1.030) Urine Protein (Negative) Urine Glucose (UA) (Negative) mg/dL Urine Ketones (Negative) Urine Blood (Negative) Urine Nitrite (Negative) Urine Bilirubin (Negative) Urine Urobilinogen (0.2) mg/dL Ur Leukocyte Esterase (Negative) U Hyaline Cast (Auto) (0-2) /LPF Urine Microscopic RBC (0-5) /HPF Urine Microscopic WBC (0-5) /HPF Ur Epithelial Cells (None Seen) /HPF Urine Bacteria (None Seen) /HPF Urine Culture Reflexed (NO) Urine Opiates Level (NEGATIVE) Ur Methadone (NEGATIVE) Urine Barbiturates (NEGATIVE) Ur Phencyclidine (PCP) (NEGATIVE) Urine Amphetamine (NEGATIVE) U Benzodiazepine Level (NEGATIVE) Urine Cocaine (NEGATIVE) Urine Marijuana (THC) (NEGATIVE) Monoscreen NEGATIVE (NEGATIVE) Influenza Type A Ag (NEGATIVE) Influenza Type B Ag (NEGATIVE) RSV (PCR) (NEGATIVE) SARS-CoV-2 (PCR) (NEGATIVE) 05/17/23 05/17/23 05/17/23 Range/Units 06:15 06:24 08:55 WBC (4.0-10.5) x10^3/uL RBC (4.1-5.6) x10^6/uL Hgb (12.5-18.0) g/dL Hct (42-50) % MCV (78-100) fL MCH (26-32) pg MCHC (32-36) g/dL RDW (11.5-14.0) % Plt Count (150-450) x10^3/uL MPV (7.5-11.0) fL Gran % (36.0-66.0) % Immature Gran % (Auto) (0.00-0.4) % Nucleat RBC Rel Count (0.00-0.1) % Eos # (Auto) (0-0.5) x10^3/uL Immature Gran # (Auto) (0.00-0.03) x10^3u/L Absolute Lymphs (auto) (1.0-4.6) x10^3/uL Absolute Monos (auto) (0.0-1.3) x10^3/uL Absolute Nucleated RBC (0.00-0.01) x10^3u/L Lymphocytes % (24.0-44.0) % Monocytes % (0.0-12.0) % Eosinophils % (0.00-5.0) % Basophils % (0.0-0.4) % Absolute Granulocytes (1.4-6.9) x10^3/uL Basophils # (0-0.4) x10^3/uL Sodium (137-145) mmol/L Potassium (3.5-5.1) mmol/L Chloride (98-107) mmol/L Carbon Dioxide (22-30) mmol/L Anion Gap (5-15) MEQ/L BUN (9-20) mg/dL Creatinine (0.66-1.25) mg/dL Estimated GFR ML/MIN Glucose (74-106) mg/dL POC Glucometer (74 to 106) mg/dL Hemoglobin A1c (4.5-6.0) % Lactic Acid 2.0 (0.4-2.0) Calcium (8.4-10.2) mg/dL Total Bilirubin (0.2-1.3) mg/dL AST (17-59) U/L ALT (0-50) U/L Alkaline Phosphatase (38-126) U/L Serum Total Protein (6.3-8.2) g/dL Albumin (3.5-5.0) g/dL Amylase (30-110) U/L Lipase (23-300) U/L Urine Color Yellow (Yellow) Urine Appearance Clear (Clear) Urine pH 5.5 (4.6-8.0) Ur Specific [place] >=1.030 A (1.005-1.030) Urine Protein 300 A (Negative) Urine Glucose (UA) >=1000 A (Negative) mg/dL Urine Ketones 40 A (Negative) Urine Blood Moderate A (Negative) Urine Nitrite Negative (Negative) Urine Bilirubin Negative (Negative) Urine Urobilinogen 0.2 (0.2) mg/dL Ur Leukocyte Esterase Negative (Negative) U Hyaline Cast (Auto) 20-50 (0-2) /LPF Urine Microscopic RBC 6-10 A (0-5) /HPF Urine Microscopic WBC 0-2 (0-5) /HPF Ur Epithelial Cells Rare (None Seen) /HPF Urine Bacteria None Seen (None Seen) /HPF Urine Culture Reflexed YES (NO) Urine Opiates Level (NEGATIVE) Ur Methadone (NEGATIVE) Urine Barbiturates (NEGATIVE) Ur Phencyclidine (PCP) (NEGATIVE) Urine Amphetamine (NEGATIVE) U Benzodiazepine Level (NEGATIVE) Urine Cocaine (NEGATIVE) Urine Marijuana (THC) (NEGATIVE) Monoscreen (NEGATIVE) Influenza Type A Ag NEGATIVE (NEGATIVE) Influenza Type B Ag NEGATIVE (NEGATIVE) RSV (PCR) POSITIVE (NEGATIVE) SARS-CoV-2 (PCR) NEGATIVE (NEGATIVE) 05/17/23 05/17/23 05/17/23 Range/Units 08:55 12:05 16:53 WBC (4.0-10.5) x10^3/uL RBC (4.1-5.6) x10^6/uL Hgb (12.5-18.0) g/dL Hct (42-50) % MCV (78-100) fL MCH (26-32) pg MCHC (32-36) g/dL RDW (11.5-14.0) % Plt Count (150-450) x10^3/uL MPV (7.5-11.0) fL Gran % (36.0-66.0) % Immature Gran % (Auto) (0.00-0.4) % Nucleat RBC Rel Count (0.00-0.1) % Eos # (Auto) (0-0.5) x10^3/uL Immature Gran # (Auto) (0.00-0.03) x10^3u/L Absolute Lymphs (auto) (1.0-4.6) x10^3/uL Absolute Monos (auto) (0.0-1.3) x10^3/uL Absolute Nucleated RBC (0.00-0.01) x10^3u/L Lymphocytes % (24.0-44.0) % Monocytes % (0.0-12.0) % Eosinophils % (0.00-5.0) % Basophils % (0.0-0.4) % Absolute Granulocytes (1.4-6.9) x10^3/uL Basophils # (0-0.4) x10^3/uL Sodium (137-145) mmol/L Potassium (3.5-5.1) mmol/L Chloride (98-107) mmol/L Carbon Dioxide (22-30) mmol/L Anion Gap (5-15) MEQ/L BUN (9-20) mg/dL Creatinine (0.66-1.25) mg/dL Estimated GFR ML/MIN Glucose (74-106) mg/dL POC Glucometer 428 H 407 H (74 to 106) mg/dL Hemoglobin A1c (4.5-6.0) % Lactic Acid (0.4-2.0) Calcium (8.4-10.2) mg/dL Total Bilirubin (0.2-1.3) mg/dL AST (17-59) U/L ALT (0-50) U/L Alkaline Phosphatase (38-126) U/L Serum Total Protein (6.3-8.2) g/dL Albumin (3.5-5.0) g/dL Amylase (30-110) U/L Lipase (23-300) U/L Urine Color (Yellow) Urine Appearance (Clear) Urine pH (4.6-8.0) Ur Specific [place] (1.005-1.030) Urine Protein (Negative) Urine Glucose (UA) (Negative) mg/dL Urine Ketones (Negative) Urine Blood (Negative) Urine Nitrite (Negative) Urine Bilirubin (Negative) Urine Urobilinogen (0.2) mg/dL Ur Leukocyte Esterase (Negative) U Hyaline Cast (Auto) (0-2) /LPF Urine Microscopic RBC (0-5) /HPF Urine Microscopic WBC (0-5) /HPF Ur Epithelial Cells (None Seen) /HPF Urine Bacteria (None Seen) /HPF Urine Culture Reflexed (NO) Urine Opiates Level NEGATIVE (NEGATIVE) Ur Methadone NEGATIVE (NEGATIVE) Urine Barbiturates NEGATIVE (NEGATIVE) Ur Phencyclidine (PCP) NEGATIVE (NEGATIVE) Urine Amphetamine NEGATIVE (NEGATIVE) U Benzodiazepine Level NEGATIVE (NEGATIVE) Urine Cocaine NEGATIVE (NEGATIVE) Urine Marijuana (THC) NEGATIVE (NEGATIVE) Monoscreen (NEGATIVE) Influenza Type A Ag (NEGATIVE) Influenza Type B Ag (NEGATIVE) RSV (PCR) (NEGATIVE) SARS-CoV-2 (PCR) (NEGATIVE) 05/17/23 05/17/23 05/18/23 Range/Units 21:01 Unknown 05:14 WBC 15.3 H (4.0-10.5) x10^3/uL RBC 4.47 (4.1-5.6) x10^6/uL Hgb 11.6 L (12.5-18.0) g/dL Hct 36.3 L (42-50) % MCV 81.2 (78-100) fL MCH 26.0 (26-32) pg MCHC 32.0 (32-36) g/dL RDW 13.9 (11.5-14.0) % Plt Count 620 H (150-450) x10^3/uL MPV 9.0 (7.5-11.0) fL Gran % 77.3 H (36.0-66.0) % Immature Gran % (Auto) 0.5 H (0.00-0.4) % Nucleat RBC Rel Count 0.0 (0.00-0.1) % Eos # (Auto) 0.03 (0-0.5) x10^3/uL Immature Gran # (Auto) 0.07 H (0.00-0.03) x10^3u/L Absolute Lymphs (auto) 2.03 (1.0-4.6) x10^3/uL Absolute Monos (auto) 1.31 H (0.0-1.3) x10^3/uL Absolute Nucleated RBC 0.00 (0.00-0.01) x10^3u/L Lymphocytes % 13.2 L (24.0-44.0) % Monocytes % 8.5 (0.0-12.0) % Eosinophils % 0.2 (0.00-5.0) % Basophils % 0.3 (0.0-0.4) % Absolute Granulocytes 11.85 H (1.4-6.9) x10^3/uL Basophils # 0.04 (0-0.4) x10^3/uL Sodium (137-145) mmol/L Potassium (3.5-5.1) mmol/L Chloride (98-107) mmol/L Carbon Dioxide (22-30) mmol/L Anion Gap (5-15) MEQ/L BUN (9-20) mg/dL Creatinine (0.66-1.25) mg/dL Estimated GFR ML/MIN Glucose (74-106) mg/dL POC Glucometer 234 H (74 to 106) mg/dL Hemoglobin A1c 9.32 H (4.5-6.0) % Lactic Acid (0.4-2.0) Calcium (8.4-10.2) mg/dL Total Bilirubin (0.2-1.3) mg/dL AST (17-59) U/L ALT (0-50) U/L Alkaline Phosphatase (38-126) U/L Serum Total Protein (6.3-8.2) g/dL Albumin (3.5-5.0) g/dL Amylase (30-110) U/L Lipase (23-300) U/L Urine Color (Yellow) Urine Appearance (Clear) Urine pH (4.6-8.0) Ur Specific [place] (1.005-1.030) Urine Protein (Negative) Urine Glucose (UA) (Negative) mg/dL Urine Ketones (Negative) Urine Blood (Negative) Urine Nitrite (Negative) Urine Bilirubin (Negative) Urine Urobilinogen (0.2) mg/dL Ur Leukocyte Esterase (Negative) U Hyaline Cast (Auto) (0-2) /LPF Urine Microscopic RBC (0-5) /HPF Urine Microscopic WBC (0-5) /HPF Ur Epithelial Cells (None Seen) /HPF Urine Bacteria (None Seen) /HPF Urine Culture Reflexed (NO) Urine Opiates Level (NEGATIVE) Ur Methadone (NEGATIVE) Urine Barbiturates (NEGATIVE) Ur Phencyclidine (PCP) (NEGATIVE) Urine Amphetamine (NEGATIVE) U Benzodiazepine Level (NEGATIVE) Urine Cocaine (NEGATIVE) Urine Marijuana (THC) (NEGATIVE) Monoscreen (NEGATIVE) Influenza Type A Ag (NEGATIVE) Influenza Type B Ag (NEGATIVE) RSV (PCR) (NEGATIVE) SARS-CoV-2 (PCR) (NEGATIVE) Radiology Exams: Radiology Procedures Category Date Time Status ABDOMEN AND PELVIS W/0 CONTRAS [CT] Stat Exams 05/17/23 06:07 Completed CHEST 1 VIEW (PORTABLE) Stat Exams 05/17/23 10:32 Ordered Assessment/Plan (1) Acute renal injury Current Visit: Yes Status: Acute Assessment & Plan: -Gentle hydration -I&O -Monitor for fluid overload -Avoid ACEI/ARBs/NSAIDS/Diuretics -Monitor renal /lytes daily 05/18: -improving, continue IVF Code(s): N17.9 - ACUTE KIDNEY FAILURE, UNSPECIFIED (2) RSV (acute bronchiolitis due to respiratory syncytial virus) Current Visit: Yes Status: Acute Assessment & Plan: -supportive therapies -Supplemental oxygen for spo2 goal >92% -cxr 05/18/23: -CXR pending (3) Leukocytosis Current Visit: Yes Status: Acute Assessment & Plan: -Most likely secondary to N/V, trend -RSV positive, will order cxr to r/o secondary bacterial infection -UA with no findings of infection 05/18: -WBC downtrending Code(s): D72.829 - ELEVATED WHITE BLOOD CELL COUNT, UNSPECIFIED (4) Nausea and vomiting Current Visit: Yes Status: Acute Assessment & Plan: -UDS/UA negative -RSV positive -supportive therapies -IVF, anti-emetics, CLD ADAT 05/18: -Resolved Code(s): R11.2 - NAUSEA WITH VOMITING, UNSPECIFIED (5) Uncontrolled type 1 diabetes mellitus Current Visit: No Status: Acute Assessment & Plan: -ADA diet -SSI, lantus for now, CM to discuss medications/pump -Pt to bring insulin pump, can resume when pump/supplies available Code(s): E10.65 - TYPE 1 DIABETES MELLITUS WITH HYPERGLYCEMIA Code(s): N17.9 - ACUTE KIDNEY FAILURE, UNSPECIFIED (2) RSV (acute bronchiolitis due to respiratory syncytial virus) Current Visit: Yes Status: Acute (3) Leukocytosis Current Visit: Yes Status: Acute Code(s): D72.829 - ELEVATED WHITE BLOOD CELL COUNT, UNSPECIFIED (4) Nausea and vomiting Current Visit: Yes Status: Acute Code(s): R11.2 - NAUSEA WITH VOMITING, UNSPECIFIED (5) Uncontrolled type 1 diabetes mellitus Current Visit: No Status: Acute Code(s): E10.65 - TYPE 1 DIABETES MELLITUS WITH HYPERGLYCEMIA
[2023-05-18 05:31] LABS: ALBUMIN 2.6 g/dL (3.5-5.0); ANION GAP 11.3 MEQ/L (5-15); BILIRUBIN,TOTAL 0.5 mg/dL (0.2-1.3); Calcium 8.3 mg/dL (8.4-10.2); Creatinine 1 1.44 mg/dL (0.66-1.25); Total Protein 5.7 g/dL (6.3-8.2)
[2023-05-18] MEDS: HUMALOG SQ PRN ×4 (08:07→22:05)
[2023-05-18] MEDS: Lopressor 50 MG PO SCH ×2 (09:11→22:06)
[2023-05-18] MEDS: Effexor XR 75 MG PO SCH (09:11)
[2023-05-18] MEDS: Lyrica 50MG PO SCH ×2 (09:11→22:06)
[2023-05-18] MEDS: Protonix 40MG Tablet PO SCH (09:11)
[2023-05-18] MEDS ORDERED: APRESOLINE 20 MG/ML INJ IV PRN (09:48)
[2023-05-18 10:49] LABS: Appearance Clear (Clear); Bacteria None Seen /HPF (None Seen); Bilirubin Negative (Negative); Blood Moderate (Negative); Epithelial Cells None Seen /HPF (None Seen); Glucose, Urine >=1000 mg/dL (Negative); Ketones 40 (Negative); Leukocyte Esterase Negative (Negative); Nitrite Negative (Negative); Protein,Urine Dip >=1000 (Negative); Specific Gravity 1.025 (1.005-1.030); Urobilinogen 0.2 mg/dL (0.2); WBC 0-2 /HPF (0-5)
[2023-05-18 10:52] LABS: ADD URINE CULTURE? NO (NO)
[2023-05-18] MEDS: TYLENOL 325 MG PO PRN (12:29)
--- NOTE | 2023-05-18 14:23 | XRAY ---
Indication: Leukocytosis. RSV. Cough and short of breath. Comparison: June 17, 2017 Portable apical lordotic chest again demonstrates normal heart and lungs. Bony thorax intact. No new/acute findings.
[2023-05-18 19:14] LABS: Creatinine, Urine Random 60.4 mg/dl
[2023-05-18 19:53] VITALS: RESP 16
[2023-05-18 20:01] LABS: Protein Creatinine Ratio, Ran. 10.93 mg/mg (0.0-0.15)
[2023-05-18] MEDS: Lantus Insulin SQ SCH (22:05)
[2023-05-19 04:55] LABS: BASOPHIL % 0.4 % (0.0-0.4); Basophil (Absolute #) 0.05 x10^3/uL (0-0.4); Eosinophil % 2.2 % (0.00-5.0); Eosinophil (Absolute #) 0.26 x10^3/uL (0-0.5); Hematocrit 36.8 % (42-50); Hemoglobin 11.5 g/dL (12.5-18.0); IMMATURE GRAN # 0.05 x10^3u/L (0.00-0.03); IMMATURE GRAN % 0.4 % (0.00-0.4); Lymphocyte (Absolute #) 2.39 x10^3/uL (1.0-4.6); Lymphocytes % 20.1 % (24.0-44.0); Mean Cell Volume 82.5 fL (78-100); Mean Corpuscular Hemoglobin 25.8 pg (26-32); Mean Corpuscular Hgb Concent. 31.3 g/dL (32-36); Mean Platelet Volume 8.9 fL (7.5-11.0); Monocyte (Absolute #) 1.05 x10^3/uL (0.0-1.3); Monocytes % 8.8 % (0.0-12.0); Neutrophil % 68.1 % (36.0-66.0); Platelet Count 543 x10^3/uL (150-450); Red Blood Count 4.46 x10^6/uL (4.1-5.6); White Blood Count 11.9 x10^3/uL (4.0-10.5)
[2023-05-19 05:12] LABS: ALBUMIN 2.4 g/dL (3.5-5.0); ANION GAP 4.2 MEQ/L (5-15); BILIRUBIN,TOTAL 0.4 mg/dL (0.2-1.3); Calcium 8.4 mg/dL (8.4-10.2); Creatinine 1 0.96 mg/dL (0.66-1.25); EST GLOMERULAR FILTRATION RATE 102.5 ML/MIN; Potassium 3.7 mmol/L (3.5-5.1); Total Protein 5.5 g/dL (6.3-8.2)
[2023-05-19 05:14] LABS: Risk Ratio 2.6
--- NOTE | 2023-05-19 05:19 | PCM.NOTE ---
Date and Time: 05/19/23518 Subjective Assessment: is a 42 year old male with a pmhx of CHF, stroke, T1D ( on insulin pump), GI bleed who presented to ED 05/17/23 with complaints of a two day history of nausea and vomiting. He reports that he has been unable to tolerate a diet. Patient states he normally uses his insulin pump for his diabetes but his pump ran out of insulin and CGM batteries ran out so he has been using subQ Novolog, last dose was around 1 a.m. He also endorses a dry cough. In ED patient tachycardic, tachypneic, and hypertensive. CT of the abd/pelvis demonstrating fecal stasis, a few calcifications/ calcified nodes are noted along the right common iliacartery, otherwise unremarkable. Lab findings remarkable for leukocyt osis with wbc at 17.0, mild hyponatremia at 134, CALLIE with BUN 37, creat 1.73, hyperglycemia at 270, RSV positive. UDS negative. Patient admitted with CALLIE secondary to N/V and RSV, plan for IVF and anti-emetics. 05/18/23: Met with patient bedside. No further episodes of nausea and vomiting. Does endorse a cough. Blood glucose levels stabilizing. CXR pending. WBC downtrending. CALLIE improving. Continue to observe overnight, re-eval labs in the morning with possible discharge. Requested patient bring in insulin pump in order to check setting and blood glucose control once resumed, patient declines, states he knows his settings will be okay. Further states his pump is in working condition and he does have supplies and insulin at home. OBJECTIVE DATA Vital Signs: Vital Signs - 24 hr Temp Pulse Resp BP BP Pulse Ox 05/19/23 04:00 16 97 05/19/23 00:00 97.4 F 71 16 171/91 97 05/18/23 19:52 97.5 F 73 16 164/83 96 05/18/23 19:08 97 05/18/23 16:00 97.3 F 74 18 159/78 95 05/18/23 12:00 97.2 F 76 16 159/82 95 05/18/23 08:29 87 197/102 05/18/23 07:35 83 12 94 L 05/18/23 07:28 97.8 F 80 16 191/95 94 L Pain Assessment - Last Documented Pain Intensity 0 Pain Scale Used 0-10 Pain Scale Intake and Output: Intake & Output 05/16/23 05/17/23 05/18/23 05/19/23 11:59 11:59 11:59 11:59 Intake Total 2773 540 Output Total 900 Balance 1873 540 Weight 53.2 kg Lab Results: Lab Results-Last 24 Hours 05/17/23 05/18/23 05/18/23 Range/Units 06:24 05:14 07:01 WBC (4.0-10.5) x10^3/uL RBC (4.1-5.6) x10^6/uL Hgb (12.5-18.0) g/dL Hct (42-50) % MCV (78-100) fL MCH (26-32) pg MCHC (32-36) g/dL RDW (11.5-14.0) % Plt Count (150-450) x10^3/uL MPV (7.5-11.0) fL Gran % (36.0-66.0) % Immature Gran % (Auto) (0.00-0.4) % Nucleat RBC Rel Count (0.00-0.1) % Eos # (Auto) (0-0.5) x10^3/uL Immature Gran # (Auto) (0.00-0.03) x10^3u/L Absolute Lymphs (auto) (1.0-4.6) x10^3/uL Absolute Monos (auto) (0.0-1.3) x10^3/uL Absolute Nucleated RBC (0.00-0.01) x10^3u/L Lymphocytes % (24.0-44.0) % Monocytes % (0.0-12.0) % Eosinophils % (0.00-5.0) % Basophils % (0.0-0.4) % Absolute Granulocytes (1.4-6.9) x10^3/uL Basophils # (0-0.4) x10^3/uL Sodium 132 L (137-145) mmol/L Potassium 4.0 (3.5-5.1) mmol/L Chloride 102 (98-107) mmol/L Carbon Dioxide 23 (22-30) mmol/L Anion Gap 11.3 (5-15) MEQ/L BUN 32 H (9-20) mg/dL Creatinine 1.44 H (0.66-1.25) mg/dL Estimated GFR 63.0 ML/MIN Glucose 312 H (74-106) mg/dL POC Glucometer 359 H (74 to 106) mg/dL Calcium 8.3 L D (8.4-10.2) mg/dL Total Bilirubin 0.50 (0.2-1.3) mg/dL AST 16 L (17-59) U/L ALT 11 (0-50) U/L Alkaline Phosphatase 176 H (38-126) U/L Serum Total Protein 5.7 L (6.3-8.2) g/dL Albumin 2.6 L (3.5-5.0) g/dL Urine Color (Yellow) Urine Appearance (Clear) Urine pH (4.6-8.0) Ur Specific [place] (1.005-1.030) Urine Protein (Negative) Urine Glucose (UA) (Negative) mg/dL Urine Ketones (Negative) Urine Blood (Negative) Urine Nitrite (Negative) Urine Bilirubin (Negative) Urine Urobilinogen (0.2) mg/dL Ur Leukocyte Esterase (Negative) U Hyaline Cast (Auto) (0-2) /LPF Urine Microscopic RBC (0-5) /HPF Urine Microscopic WBC (0-5) /HPF Ur Epithelial Cells (None Seen) /HPF Urine Bacteria (None Seen) /HPF Urine Culture Reflexed (NO) Ur Random Creatinine mg/dl U Random Total Protein (<12) mg/dl U [place] Prot/Creat Ratio (0.0-0.15) mg/mg Influenza Type A Ag NEGATIVE (NEGATIVE) Influenza Type B Ag NEGATIVE (NEGATIVE) RSV (PCR) POSITIVE (NEGATIVE) SARS-CoV-2 (PCR) NEGATIVE (NEGATIVE) 05/18/23 05/18/23 05/18/23 Range/Units 10:17 11:42 16:57 WBC (4.0-10.5) x10^3/uL RBC (4.1-5.6) x10^6/uL Hgb (12.5-18.0) g/dL Hct (42-50) % MCV (78-100) fL MCH (26-32) pg MCHC (32-36) g/dL RDW (11.5-14.0) % Plt Count (150-450) x10^3/uL MPV (7.5-11.0) fL Gran % (36.0-66.0) % Immature Gran % (Auto) (0.00-0.4) % Nucleat RBC Rel Count (0.00-0.1) % Eos # (Auto) (0-0.5) x10^3/uL Immature Gran # (Auto) (0.00-0.03) x10^3u/L Absolute Lymphs (auto) (1.0-4.6) x10^3/uL Absolute Monos (auto) (0.0-1.3) x10^3/uL Absolute Nucleated RBC (0.00-0.01) x10^3u/L Lymphocytes % (24.0-44.0) % Monocytes % (0.0-12.0) % Eosinophils % (0.00-5.0) % Basophils % (0.0-0.4) % Absolute Granulocytes (1.4-6.9) x10^3/uL Basophils # (0-0.4) x10^3/uL Sodium (137-145) mmol/L Potassium (3.5-5.1) mmol/L Chloride (98-107) mmol/L Carbon Dioxide (22-30) mmol/L Anion Gap (5-15) MEQ/L BUN (9-20) mg/dL Creatinine (0.66-1.25) mg/dL Estimated GFR ML/MIN Glucose (74-106) mg/dL POC Glucometer 156 H 270 H (74 to 106) mg/dL Calcium (8.4-10.2) mg/dL Total Bilirubin (0.2-1.3) mg/dL AST (17-59) U/L ALT (0-50) U/L Alkaline Phosphatase (38-126) U/L Serum Total Protein (6.3-8.2) g/dL Albumin (3.5-5.0) g/dL Urine Color Yellow (Yellow) Urine Appearance Clear (Clear) Urine pH 6.0 (4.6-8.0) Ur Specific [place] 1.025 (1.005-1.030) Urine Protein >=1000 A (Negative) Urine Glucose (UA) >=1000 A (Negative) mg/dL Urine Ketones 40 A (Negative) Urine Blood Moderate A (Negative) Urine Nitrite Negative (Negative) Urine Bilirubin Negative (Negative) Urine Urobilinogen 0.2 (0.2) mg/dL Ur Leukocyte Esterase Negative (Negative) U Hyaline Cast (Auto) 3-5 A (0-2) /LPF Urine Microscopic RBC 11-20 A (0-5) /HPF Urine Microscopic WBC 0-2 (0-5) /HPF Ur Epithelial Cells None Seen (None Seen) /HPF Urine Bacteria None Seen (None Seen) /HPF Urine Culture Reflexed NO (NO) Ur Random Creatinine mg/dl U Random Total Protein (<12) mg/dl U [place] Prot/Creat Ratio (0.0-0.15) mg/mg Influenza Type A Ag (NEGATIVE) Influenza Type B Ag (NEGATIVE) RSV (PCR) (NEGATIVE) SARS-CoV-2 (PCR) (NEGATIVE) 05/18/23 05/18/23 05/19/23 Range/Units 18:34 20:54 04:35 WBC 11.9 H (4.0-10.5) x10^3/uL RBC 4.46 (4.1-5.6) x10^6/uL Hgb 11.5 L (12.5-18.0) g/dL Hct 36.8 L (42-50) % MCV 82.5 (78-100) fL MCH 25.8 L (26-32) pg MCHC 31.3 L (32-36) g/dL RDW 14.0 (11.5-14.0) % Plt Count 543 H (150-450) x10^3/uL MPV 8.9 (7.5-11.0) fL Gran % 68.1 H (36.0-66.0) % Immature Gran % (Auto) 0.4 (0.00-0.4) % Nucleat RBC Rel Count 0.0 (0.00-0.1) % Eos # (Auto) 0.26 (0-0.5) x10^3/uL Immature Gran # (Auto) 0.05 H (0.00-0.03) x10^3u/L Absolute Lymphs (auto) 2.39 (1.0-4.6) x10^3/uL Absolute Monos (auto) 1.05 (0.0-1.3) x10^3/uL Absolute Nucleated RBC 0.00 (0.00-0.01) x10^3u/L Lymphocytes % 20.1 L (24.0-44.0) % Monocytes % 8.8 (0.0-12.0) % Eosinophils % 2.2 (0.00-5.0) % Basophils % 0.4 (0.0-0.4) % Absolute Granulocytes 8.10 H (1.4-6.9) x10^3/uL Basophils # 0.05 (0-0.4) x10^3/uL Sodium (137-145) mmol/L Potassium (3.5-5.1) mmol/L Chloride (98-107) mmol/L Carbon Dioxide (22-30) mmol/L Anion Gap (5-15) MEQ/L BUN (9-20) mg/dL Creatinine (0.66-1.25) mg/dL Estimated GFR ML/MIN Glucose (74-106) mg/dL POC Glucometer 159 H (74 to 106) mg/dL Calcium (8.4-10.2) mg/dL Total Bilirubin (0.2-1.3) mg/dL AST (17-59) U/L ALT (0-50) U/L Alkaline Phosphatase (38-126) U/L Serum Total Protein (6.3-8.2) g/dL Albumin (3.5-5.0) g/dL Urine Color (Yellow) Urine Appearance (Clear) Urine pH (4.6-8.0) Ur Specific [place] (1.005-1.030) Urine Protein (Negative) Urine Glucose (UA) (Negative) mg/dL Urine Ketones (Negative) Urine Blood (Negative) Urine Nitrite (Negative) Urine Bilirubin (Negative) Urine Urobilinogen (0.2) mg/dL Ur Leukocyte Esterase (Negative) U Hyaline Cast (Auto) (0-2) /LPF Urine Microscopic RBC (0-5) /HPF Urine Microscopic WBC (0-5) /HPF Ur Epithelial Cells (None Seen) /HPF Urine Bacteria (None Seen) /HPF Urine Culture Reflexed (NO) Ur Random Creatinine 60.4 mg/dl U Random Total Protein 660.0 (<12) mg/dl U [place] Prot/Creat Ratio 10.93 H (0.0-0.15) mg/mg Influenza Type A Ag (NEGATIVE) Influenza Type B Ag (NEGATIVE) RSV (PCR) (NEGATIVE) SARS-CoV-2 (PCR) (NEGATIVE) 05/19/23 Range/Units 04:35 WBC (4.0-10.5) x10^3/uL RBC (4.1-5.6) x10^6/uL Hgb (12.5-18.0) g/dL Hct (42-50) % MCV (78-100) fL MCH (26-32) pg MCHC (32-36) g/dL RDW (11.5-14.0) % Plt Count (150-450) x10^3/uL MPV (7.5-11.0) fL Gran % (36.0-66.0) % Immature Gran % (Auto) (0.00-0.4) % Nucleat RBC Rel Count (0.00-0.1) % Eos # (Auto) (0-0.5) x10^3/uL Immature Gran # (Auto) (0.00-0.03) x10^3u/L Absolute Lymphs (auto) (1.0-4.6) x10^3/uL Absolute Monos (auto) (0.0-1.3) x10^3/uL Absolute Nucleated RBC (0.00-0.01) x10^3u/L Lymphocytes % (24.0-44.0) % Monocytes % (0.0-12.0) % Eosinophils % (0.00-5.0) % Basophils % (0.0-0.4) % Absolute Granulocytes (1.4-6.9) x10^3/uL Basophils # (0-0.4) x10^3/uL Sodium 133 L (137-145) mmol/L Potassium 3.7 (3.5-5.1) mmol/L Chloride 103 (98-107) mmol/L Carbon Dioxide 30 (22-30) mmol/L Anion Gap 4.2 L (5-15) MEQ/L BUN 21 H (9-20) mg/dL Creatinine 0.96 (0.66-1.25) mg/dL Estimated GFR 102.5 ML/MIN Glucose 98 (74-106) mg/dL POC Glucometer (74 to 106) mg/dL Calcium 8.4 (8.4-10.2) mg/dL Total Bilirubin 0.40 (0.2-1.3) mg/dL AST 21 (17-59) U/L ALT 12 (0-50) U/L Alkaline Phosphatase 159 H (38-126) U/L Serum Total Protein 5.5 L (6.3-8.2) g/dL Albumin 2.4 L (3.5-5.0) g/dL Urine Color (Yellow) Urine Appearance (Clear) Urine pH (4.6-8.0) Ur Specific [place] (1.005-1.030) Urine Protein (Negative) Urine Glucose (UA) (Negative) mg/dL Urine Ketones (Negative) Urine Blood (Negative) Urine Nitrite (Negative) Urine Bilirubin (Negative) Urine Urobilinogen (0.2) mg/dL Ur Leukocyte Esterase (Negative) U Hyaline Cast (Auto) (0-2) /LPF Urine Microscopic RBC (0-5) /HPF Urine Microscopic WBC (0-5) /HPF Ur Epithelial Cells (None Seen) /HPF Urine Bacteria (None Seen) /HPF Urine Culture Reflexed (NO) Ur Random Creatinine mg/dl U Random Total Protein (<12) mg/dl U [place] Prot/Creat Ratio (0.0-0.15) mg/mg Influenza Type A Ag (NEGATIVE) Influenza Type B Ag (NEGATIVE) RSV (PCR) (NEGATIVE) SARS-CoV-2 (PCR) (NEGATIVE) Radiology Exams: Radiology Procedures Category Date Time Status ABDOMEN AND PELVIS W/0 CONTRAS [CT] Stat Exams 05/17/23 06:07 Completed CHEST 1 VIEW (PORTABLE) Stat Exams 05/18/23 10:32 Completed Assessment/Plan (1) Acute renal injury Current Visit: Yes Status: Acute Assessment & Plan: (1) Acute renal injury Current Visit: Yes Status: Acute Assessment & Plan: -Gentle hydration -I&O -Monitor for fluid overload -Avoid ACEI/ARBs/NSAIDS/Diuretics -Monitor renal /lytes daily 05/18: -improving, continue IVF Code(s): N17.9 - ACUTE KIDNEY FAILURE, UNSPECIFIED (2) RSV (acute bronchiolitis due to respiratory syncytial virus) Current Visit: Yes Status: Acute Assessment & Plan: -supportive therapies -Supplemental oxygen for spo2 goal >92% -cxr 05/18/23: -CXR pending (3) Leukocytosis Current Visit: Yes Status: Acute Assessment & Plan: -Most likely secondary to N/V, trend -RSV positive, will order cxr to r/o secondary bacterial infection -UA with no findings of infection 05/18: -WBC downtrending Code(s): D72.829 - ELEVATED WHITE BLOOD CELL COUNT, UNSPECIFIED (4) Nausea and vomiting Current Visit: Yes Status: Acute Assessment & Plan: -UDS/UA negative -RSV positive -supportive therapies -IVF, anti-emetics, CLD ADAT 05/18: -Resolved Code(s): R11.2 - NAUSEA WITH VOMITING, UNSPECIFIED (5) Uncontrolled type 1 diabetes mellitus Current Visit: No Status: Acute Assessment & Plan: -ADA diet -SSI, lantus for now, CM to discuss medications/pump -Pt to bring insulin pump, can resume when pump/supplies available Code(s): E10.65 - TYPE 1 DIABETES MELLITUS WITH HYPERGLYCEMIA Code(s): N17.9 - ACUTE KIDNEY FAILURE, UNSPECIFIED (2) RSV (acute bronchiolitis due to respiratory syncytial virus) Current Visit: Yes Status: Acute (3) Leukocytosis Current Visit: Yes Status: Acute Code(s): D72.829 - ELEVATED WHITE BLOOD CELL COUNT, UNSPECIFIED (4) Nausea and vomiting Current Visit: Yes Status: Acute Code(s): R11.2 - NAUSEA WITH VOMITING, UNSPECIFIED (5) Uncontrolled type 1 diabetes mellitus Current Visit: No Status: Acute Code(s): E10.65 - TYPE 1 DIABETES MELLITUS WITH HYPERGLYCEMIA
[2023-05-19 07:04] VITALS: TEMP 97.8
[2023-05-19] MEDS: Lopressor 50 MG PO SCH (08:56)
[2023-05-19] MEDS: Effexor XR 75 MG PO SCH (08:57)
[2023-05-19] MEDS: Protonix 40MG Tablet PO SCH (08:57)
[2023-05-19] MEDS: Lyrica 50MG PO SCH (08:57)
[2023-05-19 09:22] VITALS: PULSE 86; O2SAT 98
[2023-05-19 10:21] VITALS: BP 145/76
[2023-05-19] MEDS ORDERED: Zestril 20 MG PO ONE (10:27)
--- NOTE | 2023-05-19 10:27 | PCM.DS ---
Discharge Summary Date of Admission: 05/17/23 09:42 Date of Discharge: 05/19/23 Admitting Physician: CAMERON FERNANDES MD Primary Care Provider: MICHELLE WILSON Allergies Allergies lorazepam [From Ativan] Adverse Reaction (Verified 05/17/23 05:04) "makes him crazy" Hospital Summary - Hospital Course Hospital Course: is a 42 year old male with a pmhx of CHF, stroke, T1D ( on insulin pump), GI bleed who presented to ED 05/17/23 with complaints of a two day history of nausea and vomiting. He reports that he has been unable to tolerate a diet. Patient states he normally uses his insulin pump for his diabetes but his pump ran out of insulin and CGM batteries ran out so he has been using subQ Novolog, last dose was around 1 a.m. He also endorses a dry cough. In ED patient tachycardic, tachypneic, and hypertensive. CT of the abd/pelvis demonstrating fecal stasis, a few calcifications/ calcified nodes are noted along the right common iliacartery, otherwise unremarkable. Lab findings remarkable for leukocytosis with wbc at 17.0, mild hyponatremia at 134, CALLIE with BUN 37, creat 1.73, hyperglycemia at 270, RSV positive. UDS negative. Patient admitted with CALLIE secondary to N/V and RSV, treated with IVF and anti-emetics. No further episodes of nausea/vomiting. Labs returning to baseline. Patient at RA which is his baseline. Urinalysis showing large amount of protein, patient to follow up OP with nephrology. BP elevated during stay, patient to start on Lisinopril 20mg daily. Advised further follow up with group segment consultant/PCP. Patient agreeable to plan and ready for discharge. Patient advised to keep blood glucose and blood pressure logs until follow up with PCP/NEPH/endocrinology. Pump may need adjustments, A1c at 9.32. Discharge Note New Diagnosis: RSV/ hyperglycemia New Medications::Lisinopril Follow Up: PCP/nephrology Latest Assessment & Plan (1) Acute renal injury Current Visit: Yes Status: Acute Assessment & Plan: -Gentle hydration -I&O -Monitor for fluid overload -Avoid ACEI/ARBs/NSAIDS/Diuretics -Monitor renal /lytes daily 05/18: -improving, continue IVF Code(s): N17.9 - ACUTE KIDNEY FAILURE, UNSPECIFIED (2) RSV (acute bronchiolitis due to respiratory syncytial virus) Current Visit: Yes Status: Acute Assessment & Plan: -supportive therapies -Supplemental oxygen for spo2 goal >92% -cxr 05/18/23: -CXR pending (3) Leukocytosis Current Visit: Yes Status: Acute Assessment & Plan: -Most likely secondary to N/V, trend -RSV positive, will order cxr to r/o secondary bacterial infection -UA with no findings of infection 05/18: -WBC downtrending Code(s): D72.829 - ELEVATED WHITE BLOOD CELL COUNT, UNSPECIFIED (4) Nausea and vomiting Current Visit: Yes Status: Acute Assessment & Plan: -UDS/UA negative -RSV positive -supportive therapies -IVF, anti-emetics, CLD ADAT 05/18: -Resolved Code(s): R11.2 - NAUSEA WITH VOMITING, UNSPECIFIED (5) Uncontrolled type 1 diabetes mellitus Current Visit: No Status: Acute Assessment & Plan: -ADA diet -SSI, lantus for now, CM to discuss medications/pump -Pt to bring insulin pump, can resume when pump/supplies available Code(s): E10.65 - TYPE 1 DIABETES MELLITUS WITH HYPERGLYCEMIA Code(s): N17.9 - ACUTE KIDNEY FAILURE, UNS I spent 35 minutes [id number] with the patient on the day of discharge performing discharge exam, discussing hospital stay and discharge instructions with patient and caregivers, preparation of discharge records, prescriptions & referral forms and addressing any questions/concerns the patient had as doc umented above. - Vitals & Intake/Output Vital Signs: Vital Signs Temperature 97.8 F 05/19/23 07:04 Pulse Rate 86 05/19/23 09:21 Respiratory Rate 16 05/19/23 09:21 Blood Pressure 172/89 05/19/23 07:04 O2 Sat by Pulse Oximetry 98 05/19/23 09:21 Intake & Output: Intake & Output 05/16/23 05/17/23 05/18/23 05/19/23 11:59 11:59 11:59 11:59 Intake Total 2773 540 Output Total 900 Balance 1873 540 Weight 53.2 kg 55.7 kg - Lab Result Diagrams: 05/19/23 04:35 05/19/23 04:35 Lab Results-Last 24 Hrs: Lab Results-Last 24 Hours 05/17/23 05/18/23 05/18/23 Range/Units 06:24 10:17 11:42 WBC (4.0-10.5) x10^3/uL RBC (4.1-5.6) x10^6/uL Hgb (12.5-18.0) g/dL Hct (42-50) % MCV (78-100) fL MCH (26-32) pg MCHC (32-36) g/dL RDW (11.5-14.0) % Plt Count (150-450) x10^3/uL MPV (7.5-11.0) fL Gran % (36.0-66.0) % Immature Gran % (Auto) (0.00-0.4) % Nucleat RBC Rel Count (0.00-0.1) % Eos # (Auto) (0-0.5) x10^3/uL Immature Gran # (Auto) (0.00-0.03) x10^3u/L Absolute Lymphs (auto) (1.0-4.6) x10^3/uL Absolute Monos (auto) (0.0-1.3) x10^3/uL Absolute Nucleated RBC (0.00-0.01) x10^3u/L Lymphocytes % (24.0-44.0) % Monocytes % (0.0-12.0) % Eosinophils % (0.00-5.0) % Basophils % (0.0-0.4) % Absolute Granulocytes (1.4-6.9) x10^3/uL Basophils # (0-0.4) x10^3/uL Sodium (137-145) mmol/L Potassium (3.5-5.1) mmol/L Chloride (98-107) mmol/L Carbon Dioxide (22-30) mmol/L Anion Gap (5-15) MEQ/L BUN (9-20) mg/dL Creatinine (0.66-1.25) mg/dL Estimated GFR ML/MIN Glucose (74-106) mg/dL POC Glucometer 156 H (74 to 106) mg/dL Calcium (8.4-10.2) mg/dL Total Bilirubin (0.2-1.3) mg/dL AST (17-59) U/L ALT (0-50) U/L Alkaline Phosphatase (38-126) U/L Serum Total Protein (6.3-8.2) g/dL Albumin (3.5-5.0) g/dL Triglycerides (30-150) mg/dL Cholesterol (50-200) mg/dL LDL Cholesterol (30-100) mg/dL HDL Cholesterol (40-60) mg/dL Heart Disease Risk Ratio Urine Color Yellow (Yellow) Urine Appearance Clear (Clear) Urine pH 6.0 (4.6-8.0) Ur Specific [place] 1.025 (1.005-1.030) Urine Protein >=1000 A (Negative) Urine Glucose (UA) >=1000 A (Negative) mg/dL Urine Ketones 40 A (Negative) Urine Blood Moderate A (Negative) Urine Nitrite Negative (Negative) Urine Bilirubin Negative (Negative) Urine Urobilinogen 0.2 (0.2) mg/dL Ur Leukocyte Esterase Negative (Negative) U Hyaline Cast (Auto) 3-5 A (0-2) /LPF Urine Microscopic RBC 11-20 A (0-5) /HPF Urine Microscopic WBC 0-2 (0-5) /HPF Ur Epithelial Cells None Seen (None Seen) /HPF Urine Bacteria None Seen (None Seen) /HPF Urine Culture Reflexed NO (NO) Ur Random Creatinine mg/dl U Random Total Protein (<12) mg/dl U [place] Prot/Creat Ratio (0.0-0.15) mg/mg Influenza Type A Ag NEGATIVE (NEGATIVE) Influenza Type B Ag NEGATIVE (NEGATIVE) RSV (PCR) POSITIVE (NEGATIVE) SARS-CoV-2 (PCR) NEGATIVE (NEGATIVE) 05/18/23 05/18/23 05/18/23 Range/Units 16:57 18:34 20:54 WBC (4.0-10.5) x10^3/uL RBC (4.1-5.6) x10^6/uL Hgb (12.5-18.0) g/dL Hct (42-50) % MCV (78-100) fL MCH (26-32) pg MCHC (32-36) g/dL RDW (11.5-14.0) % Plt Count (150-450) x10^3/uL MPV (7.5-11.0) fL Gran % (36.0-66.0) % Immature Gran % (Auto) (0.00-0.4) % Nucleat RBC Rel Count (0.00-0.1) % Eos # (Auto) (0-0.5) x10^3/uL Immature Gran # (Auto) (0.00-0.03) x10^3u/L Absolute Lymphs (auto) (1.0-4.6) x10^3/uL Absolute Monos (auto) (0.0-1.3) x10^3/uL Absolute Nucleated RBC (0.00-0.01) x10^3u/L Lymphocytes % (24.0-44.0) % Monocytes % (0.0-12.0) % Eosinophils % (0.00-5.0) % Basophils % (0.0-0.4) % Absolute Granulocytes (1.4-6.9) x10^3/uL Basophils # (0-0.4) x10^3/uL Sodium (137-145) mmol/L Potassium (3.5-5.1) mmol/L Chloride (98-107) mmol/L Carbon Dioxide (22-30) mmol/L Anion Gap (5-15) MEQ/L BUN (9-20) mg/dL Creatinine (0.66-1.25) mg/dL Estimated GFR ML/MIN Glucose (74-106) mg/dL POC Glucometer 270 H 159 H (74 to 106) mg/dL Calcium (8.4-10.2) mg/dL Total Bilirubin (0.2-1.3) mg/dL AST (17-59) U/L ALT (0-50) U/L Alkaline Phosphatase (38-126) U/L Serum Total Protein (6.3-8.2) g/dL Albumin (3.5-5.0) g/dL Triglycerides (30-150) mg/dL Cholesterol (50-200) mg/dL LDL Cholesterol (30-100) mg/dL HDL Cholesterol (40-60) mg/dL Heart Disease Risk Ratio Urine Color (Yellow) Urine Appearance (Clear) Urine pH (4.6-8.0) Ur Specific [place] (1.005-1.030) Urine Protein (Negative) Urine Glucose (UA) (Negative) mg/dL Urine Ketones (Negative) Urine Blood (Negative) Urine Nitrite (Negative) Urine Bilirubin (Negative) Urine Urobilinogen (0.2) mg/dL Ur Leukocyte Esterase (Negative) U Hyaline Cast (Auto) (0-2) /LPF Urine Microscopic RBC (0-5) /HPF Urine Microscopic WBC (0-5) /HPF Ur Epithelial Cells (None Seen) /HPF Urine Bacteria (None Seen) /HPF Urine Culture Reflexed (NO) Ur Random Creatinine 60.4 mg/dl U Random Total Protein 660.0 (<12) mg/dl U [place] Prot/Creat Ratio 10.93 H (0.0-0.15) mg/mg Influenza Type A Ag (NEGATIVE) Influenza Type B Ag (NEGATIVE) RSV (PCR) (NEGATIVE) SARS-CoV-2 (PCR) (NEGATIVE) 05/19/23 05/19/23 05/19/23 Range/Units 04:35 04:35 04:35 WBC 11.9 H (4.0-10.5) x10^3/uL RBC 4.46 (4.1-5.6) x10^6/uL Hgb 11.5 L (12.5-18.0) g/dL Hct 36.8 L (42-50) % MCV 82.5 (78-100) fL MCH 25.8 L (26-32) pg MCHC 31.3 L (32-36) g/dL RDW 14.0 (11.5-14.0) % Plt Count 543 H (150-450) x10^3/uL MPV 8.9 (7.5-11.0) fL Gran % 68.1 H (36.0-66.0) % Immature Gran % (Auto) 0.4 (0.00-0.4) % Nucleat RBC Rel Count 0.0 (0.00-0.1) % Eos # (Auto) 0.26 (0-0.5) x10^3/uL Immature Gran # (Auto) 0.05 H (0.00-0.03) x10^3u/L Absolute Lymphs (auto) 2.39 (1.0-4.6) x10^3/uL Absolute Monos (auto) 1.05 (0.0-1.3) x10^3/uL Absolute Nucleated RBC 0.00 (0.00-0.01) x10^3u/L Lymphocytes % 20.1 L (24.0-44.0) % Monocytes % 8.8 (0.0-12.0) % Eosinophils % 2.2 (0.00-5.0) % Basophils % 0.4 (0.0-0.4) % Absolute Granulocytes 8.10 H (1.4-6.9) x10^3/uL Basophils # 0.05 (0-0.4) x10^3/uL Sodium 133 L (137-145) mmol/L Potassium 3.7 (3.5-5.1) mmol/L Chloride 103 (98-107) mmol/L Carbon Dioxide 30 (22-30) mmol/L Anion Gap 4.2 L (5-15) MEQ/L BUN 21 H (9-20) mg/dL Creatinine 0.96 (0.66-1.25) mg/dL Estimated GFR 102.5 ML/MIN Glucose 98 (74-106) mg/dL POC Glucometer (74 to 106) mg/dL Calcium 8.4 (8.4-10.2) mg/dL Total Bilirubin 0.40 (0.2-1.3) mg/dL AST 21 (17-59) U/L ALT 12 (0-50) U/L Alkaline Phosphatase 159 H (38-126) U/L Serum Total Protein 5.5 L (6.3-8.2) g/dL Albumin 2.4 L (3.5-5.0) g/dL Triglycerides 159 H (30-150) mg/dL Cholesterol 176 (50-200) mg/dL LDL Cholesterol 86 (30-100) mg/dL HDL Cholesterol 69 H (40-60) mg/dL Heart Disease Risk Ratio 2.6 Urine Color (Yellow) Urine Appearance (Clear) Urine pH (4.6-8.0) Ur Specific [place] (1.005-1.030) Urine Protein (Negative) Urine Glucose (UA) (Negative) mg/dL Urine Ketones (Negative) Urine Blood (Negative) Urine Nitrite (Negative) Urine Bilirubin (Negative) Urine Urobilinogen (0.2) mg/dL Ur Leukocyte Esterase (Negative) U Hyaline Cast (Auto) (0-2) /LPF Urine Microscopic RBC (0-5) /HPF Urine Microscopic WBC (0-5) /HPF Ur Epithelial Cells (None Seen) /HPF Urine Bacteria (None Seen) /HPF Urine Culture Reflexed (NO) Ur Random Creatinine mg/dl U Random Total Protein (<12) mg/dl U [place] Prot/Creat Ratio (0.0-0.15) mg/mg Influenza Type A Ag (NEGATIVE) Influenza Type B Ag (NEGATIVE) RSV (PCR) (NEGATIVE) SARS-CoV-2 (PCR) (NEGATIVE) 05/19/23 Range/Units 06:48 WBC (4.0-10.5) x10^3/uL RBC (4.1-5.6) x10^6/uL Hgb (12.5-18.0) g/dL Hct (42-50) % MCV (78-100) fL MCH (26-32) pg MCHC (32-36) g/dL RDW (11.5-14.0) % Plt Count (150-450) x10^3/uL MPV (7.5-11.0) fL Gran % (36.0-66.0) % Immature Gran % (Auto) (0.00-0.4) % Nucleat RBC Rel Count (0.00-0.1) % Eos # (Auto) (0-0.5) x10^3/uL Immature Gran # (Auto) (0.00-0.03) x10^3u/L Absolute Lymphs (auto) (1.0-4.6) x10^3/uL Absolute Monos (auto) (0.0-1.3) x10^3/uL Absolute Nucleated RBC (0.00-0.01) x10^3u/L Lymphocytes % (24.0-44.0) % Monocytes % (0.0-12.0) % Eosinophils % (0.00-5.0) % Basophils % (0.0-0.4) % Absolute Granulocytes (1.4-6.9) x10^3/uL Basophils # (0-0.4) x10^3/uL Sodium (137-145) mmol/L Potassium (3.5-5.1) mmol/L Chloride (98-107) mmol/L Carbon Dioxide (22-30) mmol/L Anion Gap (5-15) MEQ/L BUN (9-20) mg/dL Creatinine (0.66-1.25) mg/dL Estimated GFR ML/MIN Glucose (74-106) mg/dL POC Glucometer 72 L (74 to 106) mg/dL Calcium (8.4-10.2) mg/dL Total Bilirubin (0.2-1.3) mg/dL AST (17-59) U/L ALT (0-50) U/L Alkaline Phosphatase (38-126) U/L Serum Total Protein (6.3-8.2) g/dL Albumin (3.5-5.0) g/dL Triglycerides (30-150) mg/dL Cholesterol (50-200) mg/dL LDL Cholesterol (30-100) mg/dL HDL Cholesterol (40-60) mg/dL Heart Disease Risk Ratio Urine Color (Yellow) Urine Appearance (Clear) Urine pH (4.6-8.0) Ur Specific [place] (1.005-1.030) Urine Protein (Negative) Urine Glucose (UA) (Negative) mg/dL Urine Ketones (Negative) Urine Blood (Negative) Urine Nitrite (Negative) Urine Bilirubin (Negative) Urine Urobilinogen (0.2) mg/dL Ur Leukocyte Esterase (Negative) U Hyaline Cast (Auto) (0-2) /LPF Urine Microscopic RBC (0-5) /HPF Urine Microscopic WBC (0-5) /HPF Ur Epithelial Cells (None Seen) /HPF Urine Bacteria (None Seen) /HPF Urine Culture Reflexed (NO) Ur Random Creatinine mg/dl U Random Total Protein (<12) mg/dl U [place] Prot/Creat Ratio (0.0-0.15) mg/mg Influenza Type A Ag (NEGATIVE) Influenza Type B Ag (NEGATIVE) RSV (PCR) (NEGATIVE) SARS-CoV-2 (PCR) (NEGATIVE) Micro Results-Entire Visit: Microbiology 05/17/23 08:55 Urine Culture - Final Urine, Void NO GROWTH 05/17/23 06:24 Blood Culture - Preliminary Blood Accuchecks Date 05/19/23 Date 05/18/23 Date 05/18/23 Date 05/18/23 - Radiology Exams Ordered Rad Exams-Entire Visit: Radiology Procedures Category Date Time Status CHEST 1 VIEW (PORTABLE) Stat Exams 05/18/23 10:32 Completed - Procedures and Test Procedures and Tests throughout Hospitalization: Therapy Orders & Screens 05/17/23 11:28 Respiratory Therapy Consult ONCE Comment: Reason For Exam: Diagnosis: Nausea and vomiting, dehydration, acute renal injury 05/17/23 13:28 Respiratory Therapy Assessment DAILY Comment: Diagnosis: Nausea and vomiting, dehydration, acute renal injury Discharge Exam General Appearance: no apparent distress Neurologic Exam: alert, oriented x 3, cooperative Eye Exam: PERRL Ears, Nose, Throat Exam: normal ENT inspection Neck Exam: normal inspection Respiratory Exam: normal breath sounds, lungs clear Cardiovascular Exam: regular rate/rhythm, normal heart sounds Gastrointestinal/Abdomen Exam: soft, normal bowel sounds Male Genitalia Exam: deferred Rectal Exam: deferred Back Exam: normal inspection Extremity Exam: normal inspection Skin Exam: normal color Final Diagnosis/Problem List - Final Discharge Diagnosis/Problem (1) Acute renal injury Current Visit: Yes Status: Acute Code(s): N17.9 - ACUTE KIDNEY FAILURE, UNSPECIFIED (2) RSV (acute bronchiolitis due to respiratory syncytial virus) Current Visit: Yes Status: Acute (3) Leukocytosis Current Visit: Yes Status: Acute Code(s): D72.829 - ELEVATED WHITE BLOOD CELL COUNT, UNSPECIFIED (4) Nausea and vomiting Current Visit: Yes Status: Acute Code(s): R11.2 - NAUSEA WITH VOMITING, UNSPECIFIED (5) Uncontrolled type 1 diabetes mellitus Current Visit: No Status: Acute Code(s): E10.65 - TYPE 1 DIABETES MELLITUS WITH HYPERGLYCEMIA - Discharge Disposition: Home, Self-Care Condition: Stable Prescriptions: New Lisinopril 20 mg [Zestril 20 MG] 20 mg PO DAILY #30 tablet Continue Metoprolol Tartrate 50 mg [Lopressor 50 MG] 50 mg PO BID Pregabalin [Lyrica] 50 mg PO BID Guaifenesin 600 mg ER [Mucinex 600MG ER Tabs] 600 mg PO BID Dapagliflozin Propanediol [Farxiga] 5 mg PO DAILY Pantoprazole Sodium [Protonix] 40 mg PO DAILY Furosemide 20 mg [Lasix 20 mg] 20 mg PO DAILY Diazepam 5 mg [Valium 5 MG] 5 mg PO DAILY PRN PRN Reason: Anxiety Venlafaxine HCl [Venlafaxine HCl ER] 75 mg PO DAILY Gabapentin [Neurontin ] 300 mg PO BID PRN Instructions: Dehydration, Adult (DC), Respiratory Syncytial Virus, Adult (DC) Follow up with: KATIE SHEETS [CONSULTING PHYSICIAN] - 05/31/23 2:50 pm (APPOINTMENT AT [facility]) MICHELLE WILSON [Primary Care Provider] - 06/01/23 2:45 pm DAVID CORREA [NON-STAFF PHY W/O PRIVILEGES] - 05/30/23 1:30 pm Forms: Discharge Instructions
== END 2023-05-19 11:35 | disposition home or self-care (01) ==
LOC: ED 05:00 → MED SURG 09:42
PROVIDERS: ADMIT Internal Medicine; ATTEND Internal Medicine
DX: N17.9 Acute kidney failure, unspecified (principal); B97.4 Respiratory syncytial virus as the cause of diseases classified elsewhere; D72.829 Elevated white blood cell count, unspecified; R11.2 Nausea with vomiting, unspecified; E10.65 Type 1 diabetes mellitus with hyperglycemia; Z86.73 Personal history of transient ischemic attack (TIA), and cerebral infarction without residual deficits; Z87.19 Personal history of other diseases of the digestive system; Z79.899 Other long term (current) drug therapy; Z20.828 Contact with and (suspected) exposure to other viral communicable diseases
CPT/HCPCS: 0241U; 36000; 36410; 36415; 71045; 74176; 80053; 80061; 80307; 81001; 82150; 82570; 82947; 83036; 83605; 83690; 83721; 84156; 85025; 86308; 87040; 87086; 94760; 96375; 99284; Q3014; 93268; J0360; J1817; J2405; A9270-GY; G0378